=== PATIENT | male | born 1970 | race Two or more races ===

== ENCOUNTER 2020-08-17 13:55 | Outpatient (REF) | payer MEDICARE, SELFPAY ==
--- NOTE | ~2020-08-17 | XR_ITS ---
EXAMINATION: XR FOOT, BILATERAL CLINICAL INFORMATION: Pain. COMPARISON: None TECHNIQUE: 3 views of each foot. FINDINGS: RIGHT FOOT: There is no evidence of acute fracture or dislocation of the right foot. No radiopaque foreign body is seen. Joint spaces are maintained. No destructive bony lesions. No significant soft tissue swelling is appreciated. There are noted to be small Achilles and plantar calcaneal spurs. LEFT FOOT: 3 views of the left foot do not demonstrate any evidence of acute fracture or dislocation. No radiopaque foreign bodies. Joint spaces are maintained. No erosive changes. No significant calcaneal spur appreciated. XR/XR foot LT min 3V IMPRESSION: No evidence of acute fracture or dislocation of either right or left foot. No changes to suggest erosive or osteoarthritis. Right calcaneal spurs.
--- NOTE | ~2020-08-17 | XR_ITS ---
EXAMINATION: XR FOOT, BILATERAL CLINICAL INFORMATION: Pain. COMPARISON: None TECHNIQUE: 3 views of each foot. FINDINGS: RIGHT FOOT: There is no evidence of acute fracture or dislocation of the right foot. No radiopaque foreign body is seen. Joint spaces are maintained. No destructive bony lesions. No significant soft tissue swelling is appreciated. There are noted to be small Achilles and plantar calcaneal spurs. LEFT FOOT: 3 views of the left foot do not demonstrate any evidence of acute fracture or dislocation. No radiopaque foreign bodies. Joint spaces are maintained. No erosive changes. No significant calcaneal spur appreciated. XR/XR foot RT min 3V IMPRESSION: No evidence of acute fracture or dislocation of either right or left foot. No changes to suggest erosive or osteoarthritis. Right calcaneal spurs.
[2020-08-17 16:40] LABS: MANUAL DIFF FLAG NO
[2020-08-17 16:44] LABS: Basophils Percent Auto 0.4 % (0-2); Eosinophils Absolute Auto 0.2 X10*3/uL (0.0-0.4); Eosinophils Percent Auto 3.9 % (0-4); Hematocrit 46.2 % (42-52); Hemoglobin 15.1 g/dl (14.0-18.0); Imm Gran Abs Auto 0.01 X10*3/uL (0.00-0.03); Imm Gran Pct Auto 0.2 % (0.0-0.4); Lymphocytes Absolute Auto 2.3 X10*3/uL (1.2-4.9); Lymphocytes Percent Auto 43.1 % (20-40); Mean Corpuscular HGB Conc 32.7 g/dl (31.0-36.0); Mean Corpuscular Hemoglobin 29.8 pg (27.0-33.0); Mean Corpuscular Volume 91.1 fL (80-98); Mean Platelet Volume 10.5 fL (9.4-12.4); Monocytes Absolute Auto 0.4 X10*3/uL (0.1-1.2); Neutrophils Absolute Auto 2.4 X10*3/uL (2.0-8.3); Neutrophils Percent Auto 44.4 % (45-73); Platelet Count 290 X10*3/uL (160-400); Red Blood Count 5.07 X10*6/uL (4.60-5.80); Red Cell Distribution Width 12.8 % (11.0-16.0); White Blood Count 5.4 X10*3/uL (4.8-10.8)
[2020-08-17 17:52] LABS: Alanine Aminotransferase 19 U/L (0-40); Albumin Level 4.4 g/dL (3.5-5.0); Alkaline Phosphatase 65 U/L (39-117); Anion Gap 13 (12-20); Aspartate Amino Transferase 16 U/L (5-37); Bilirubin Total 0.6 mg/dL (0.0-1.0); Blood Urea Nitrogen 16 mg/dL (9-16); C Reactive Protein 0.37 mg/dL (< or = 0.50); Carbon Dioxide 25 mmol/L (22-29); Chloride 108 mmol/L (96-108); Cholesterol 226 mg/dL; Estimated Glomerular Filt Rate > 60; Glucose Fasting 88 mg/dL (60-99); HDL Cholesterol 45 mg/dL; LDL Cholesterol Calculated 161 mg/dl; Potassium 4.3 mmol/L (3.3-5.1); Sodium 142 mmol/L (135-145); Triglycerides 103 mg/dL
[2020-08-17 17:56] LABS: Erythrocyte Sedimentation Rate 5 MM/HR (0-15)
[2020-08-17 17:59] LABS: TSH reflex Free T4 1.07 uIU/mL (0.32-4.0)
[2020-08-17 18:08] LABS: Rheumatoid Factor < 15.0 IU/mL (<15.0)
[2020-08-17 18:35] LABS: Folate 15.6 ng/mL (> or = 4.0); Vitamin B12 527 pg/mL (200-900)
[2020-08-18 10:57] LABS: Lyme Abs Screen <0.90 index
[2020-08-19 12:46] LABS: Cyclic Citrullinated Peptide <16 UNITS
== END 2020-08-17 13:56 | disposition home or self-care (01) ==
LOC: HO.HMGCX 13:55
PROVIDERS: PCP Nurse Practitioner Family; Visit Provider Nurse Practitioner Family
DX: Z12.5 Encounter for screening for malignant neoplasm of prostate (principal); M79.671 Pain in right foot; M79.672 Pain in left foot; G60.8 Other hereditary and idiopathic neuropathies
CPT/HCPCS: 36415; 73630; 80053; 80061; 82550; 82607; 82746; 84153; 84443; 85025; 85652; 86140; 86200; 86431; 86617; 86618

== ENCOUNTER → 2020-09-13 15:55 | Outpatient (BNVA) | payer MEDICARE, SELFPAY | PROVIDERS: PCP Nurse Practitioner Family; Visit Provider Anesthesiology | DX: M47.816 Spondylosis without myelopathy or radiculopathy, lumbar region (principal); M17.11 Unilateral primary osteoarthritis, right knee; M70.41 Prepatellar bursitis, right knee; Z79.899 Other long term (current) drug therapy | CPT/HCPCS: 99202 ==

== ENCOUNTER → 2020-10-01 11:14 | Outpatient (BNVA) | payer MEDICARE, SELFPAY | PROVIDERS: PCP Nurse Practitioner Family; Referring Provider Nurse Practitioner Family; Visit Provider Nurse Practitioner | DX: Z01.818 Encounter for other preprocedural examination (principal); E78.00 Pure hypercholesterolemia, unspecified; E78.5 Hyperlipidemia, unspecified; M17.11 Unilateral primary osteoarthritis, right knee; M70.41 Prepatellar bursitis, right knee; M47.816 Spondylosis without myelopathy or radiculopathy, lumbar region; F32.9 Major depressive disorder, single episode, unspecified; Z12.11 Encounter for screening for malignant neoplasm of colon | CPT/HCPCS: 99202 ==

== ENCOUNTER 2021-02-10 13:46 | Outpatient (REF) | payer MEDICARE, SELFPAY ==
--- NOTE | ~2021-02-10 | XR_ITS ---
EXAMINATION: XR KNEE, RIGHT CLINICAL INFORMATION: M70.41 - Prepatellar bursitis, right knee COMPARISON: Radiographs right knee 12/17/2018 TECHNIQUE: Four views of the right knee. FINDINGS: There is no fracture, dislocation, or suprapatellar effusion. Hoffa's fat pad appears normal and the deep infrapatellar bursa is preserved. There is a corticated ossicle at superior apex fibular head similar to prior exam 2019. There is no interval joint narrowing or subchondral sclerosis or erosive changes. No visible chondrocalcinosis. XR/XR knee RT 4V IMPRESSION: No acute bony abnormality. No effusion. Deep infrapatellar recess is preserved.
--- NOTE | ~2021-02-10 | XR_ITS ---
EXAMINATION: XR LUMBOSACRAL SPINE CLINICAL INFORMATION: M47.816 - Spondylosis without myelopathy or radiculopathy COMPARISON: Lumbar radiographs 12/17/2018 TECHNIQUE: Three views of the lumbosacral spine. FINDINGS: There are 5 nonrib-bearing lumbar vertebrae of normal height and normal lumbar lordosis. There is no interval vertebral compression or spondylolisthesis. The AP view suggests a faint hairline lucency involving left L5 transverse process which could represent an ununited fracture. Clinically correlate. Otherwise, there is no fracture demonstrated. There are degenerative disc changes at L1-L2 and L2-L3 again noted with mild endplate sclerosis and vertebral spurring. Old limbus vertebrae is again seen at anterior superior aspect L4. The SI joints and visualized sacrum are unremarkable. XR/XR lumbar spine 2-3V IMPRESSION: 1. Questionable hairline fracture left transverse process L5. Clinically correlate. 2. No vertebral compression, spondylolisthesis, destructive process. 3. Degenerative disc changes L1-L2 and L2-L3. 4. 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
== END 2021-02-10 13:47 | disposition home or self-care (01) ==
LOC: HO.HMGCX 13:46
PROVIDERS: PCP Nurse Practitioner Family; Visit Provider Anesthesiology
DX: M47.816 Spondylosis without myelopathy or radiculopathy, lumbar region (principal); M70.41 Prepatellar bursitis, right knee; M17.11 Unilateral primary osteoarthritis, right knee
CPT/HCPCS: 72100; 73564

== ENCOUNTER 2021-03-21 15:00 | Outpatient (RCR) | payer MEDICARE, SELFPAY ==
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
--- NOTE | 2021-04-20 07:52 | MHC.PT.DC ---
[facility] [place] Office [place] Office [place] Office [address] Magalys Ching [address] [phone] F: [phone] F: [phone] F: [phone] F: [phone] Physical Therapy Discharge Report Diagnosis: SPONDYLOSIS WITHOUT MYELOPATHY OR RADICULOPATHY Date of Surgery: NA Date of Evaluation: 02/28/21 Date of Discharge: 04/20/21 Treatments to Date: 6 Cancellations to Date: No Shows to Date: Discharge Status: Patient Elected to Stop Recommend MD Follow-up Discharge Summary: Pt LAST SEEN ON 03/21/21. PER ASSESSMENT FROM THAT DATE:' Pt CONTINUES WITH BACK PAIN. TO SEE MD Apr. AT END OF SESSION Pt REQUESTS AWAIT FURTHER PT UNTIL AFTER MD APPT (BUT WANTED PT TO WRITE PT RECOMMENDATION TO WAIT)..ED THAT IF HE WANTED TO BE ON HOLD UNTIL AFTER MD APPT THAT IS OK, BUT IT IS HIS DECISION PER PLAN FROM 03/21/21 :'Pt TO CALL AFTER PCP APPT IN APR (15). ?BENFIT FROM REFERRAL TO PAIN MANAGEMENT (PER XRAY ?HEALING HAIRLINE FX L TRANSVERSE PROCESS L5)' OF TODAY (04/20/21) Pt HAS NOT CALLED TO RESCHEDULE. WILL DC PT AT THIS TIME. [ End ] Electronically signed by: OREN DA SILVA PT Please sign and return to therapist. Thank you for your referral.
== END 2021-04-20 07:54 | disposition home or self-care (01) ==
LOC: HO.PT 15:00
PROVIDERS: PCP Nurse Practitioner Family; Visit Provider Nurse Practitioner Family
DX: M47.816 Spondylosis without myelopathy or radiculopathy, lumbar region (principal)
CPT/HCPCS: 97014; 97110; 97140; 97162; 97530; 97535

== ENCOUNTER 2021-07-11 14:07 | Outpatient (REF) | payer OTHER, SELFPAY ==
[2021-07-11 16:29] LABS: Alanine Aminotransferase 38 U/L (0-40); Albumin Level 4.5 g/dL (3.5-5.0); Alkaline Phosphatase 68 U/L (39-117); Anion Gap 11 (12-20); Aspartate Amino Transferase 21 U/L (5-37); Bilirubin Total 0.4 mg/dL (0.0-1.0); Blood Urea Nitrogen 13 mg/dL (9-16); Calcium 9.7 mg/dL (8.4-10.2); Carbon Dioxide 28 mmol/L (22-29); Chloride 106 mmol/L (96-108); Cholesterol 237 mg/dL; Estimated Glomerular Filt Rate > 60; Glucose Fasting 94 mg/dL (60-99); HDL Cholesterol 38 mg/dL; LDL Cholesterol Calculated 177 mg/dl; Potassium 4.6 mmol/L (3.3-5.1); Sodium 140 mmol/L (135-145); Total Protein 7.2 g/dL (6.5-8.0); Triglycerides 112 mg/dL
[2021-07-11 16:49] LABS: TSH reflex Free T4 1.21 uIU/mL (0.32-4.0)
== END 2021-07-11 14:08 | disposition home or self-care (01) ==
LOC: HO.LAB 14:07
PROVIDERS: Absent Provider Nurse Practitioner Family; PCP Nurse Practitioner Family; Visit Provider Surgery
DX: K62.89 Other specified diseases of anus and rectum (principal); E78.5 Hyperlipidemia, unspecified; Z79.899 Other long term (current) drug therapy; F17.210 Nicotine dependence, cigarettes, uncomplicated
CPT/HCPCS: 36415; 46600; 80053; 80061; 84443; 99202

== ENCOUNTER 2021-09-07 12:23 | Outpatient (REF) | payer OTHER, SELFPAY ==
[2021-09-07 14:21] LABS: Cholesterol 243 mg/dL; HDL Cholesterol 36 mg/dL; LDL Cholesterol Calculated 178 mg/dl; Triglycerides 147 mg/dL
[2021-09-07 16:41] LABS: Appearance Urine CLEAR; Color Urine YELLOW; Glucose Urine UA NEG (NEG); Leukocyte Esterase Urine NEG (NEG); Nitrite Urine NEG (NEG); UACC Culture Trigger NO; Urine Blood TRACE (NEG); Urine Ketones NEG (NEG); Urine Protein NEG (NEG-TRACE)
[2021-09-07 17:22] LABS: Mucus Urine 1+ /LPF; RBC Urine 0-2 /HPF (0); Squamous Epithelial Cell Urine TRACE /LPF; WBC Urine 0-2 /HPF (0-4)
== END 2021-09-07 12:24 | disposition home or self-care (01) ==
LOC: HO.HMGCLDS 12:23
PROVIDERS: PCP Nurse Practitioner Family; Visit Provider Nurse Practitioner Family
DX: E78.5 Hyperlipidemia, unspecified (principal)
CPT/HCPCS: 36415; 80061; 81001

== ENCOUNTER 2021-09-15 07:13 | Outpatient (REF) | payer OTHER, SELFPAY ==
--- NOTE | ~2021-09-15 | XR_ITS ---
EXAMINATION: XR SHOULDER, LEFT CLINICAL INFORMATION: Shoulder pain COMPARISON: None TECHNIQUE: Left shoulder is imaged in 3 views. FINDINGS: Suspect nondisplaced fracture at base greater tuberosity on the external rotation view. Fracture line is not clearly visible on the other 2 projections. There is no dislocation or destructive process. The glenohumeral joint appears normal. The acromioclavicular alignment is normal. There is calcific tendinosis in the region of the distal superior rotator cuff. XR/XR shoulder LT min 2V IMPRESSION: -Suspect nondisplaced fracture at base greater tuberosity on one view. -Calcific tendinosis distal superior rotator cuff.
[2021-09-15 14:58] LABS: Appearance Urine CLEAR; Color Urine YELLOW; Glucose Urine UA NEG (NEG); Leukocyte Esterase Urine NEG (NEG); Nitrite Urine NEG (NEG); PH 5.5 (5.0-8.0); Specific Gravity - Urine >= 1.030 (1.005-1.025); Urine Blood NEG (NEG); Urine Ketones NEG (NEG); Urine Protein NEG (NEG-TRACE)
== END 2021-09-15 07:14 | disposition home or self-care (01) ==
LOC: HO.HOSX 07:13
PROVIDERS: Nurse Practitioner Family; Visit Provider Physician Assistant
DX: S42.252A Displaced fracture of greater tuberosity of left humerus, initial encounter for closed fracture (principal); E78.5 Hyperlipidemia, unspecified
CPT/HCPCS: 73030; 81003; 99202

== ENCOUNTER 2021-09-21 15:51 | Emergency (ER) | payer OTHER, SELFPAY ==
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
[2021-09-21 15:56] VITALS: BP 130/86; PULSE 57; RESP 18; TEMP 36.6; O2SAT 97; BMI 35.1
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
--- NOTE | 2021-09-21 16:12 | PC.NURSE ---
Pt refusing labs, ekg and only wants CT scan.
--- NOTE | 2021-09-21 16:14 | PC.NURSE ---
Patient refused EKG. ANGELLA cancino.
== END 2021-09-21 18:49 | disposition home or self-care (01) ==
PROVIDERS: Emergency Provider Emergency Medicine; PCP Nurse Practitioner Family
DX: R42 Dizziness and giddiness (principal); R51.9 Headache, unspecified; F17.210 Nicotine dependence, cigarettes, uncomplicated; Z71.6 Tobacco abuse counseling
CPT/HCPCS: 70450; 99284

== ENCOUNTER 2021-10-20 08:53 | Outpatient (REF) | payer OTHER, SELFPAY | END 2021-10-20 08:54 | disposition home or self-care (01) | LOC: HO.HOSX 08:53 | PROVIDERS: Visit Provider Physician Assistant | DX: Z13.89 Encounter for screening for other disorder (principal) ==

== ENCOUNTER 2021-10-27 10:56 | Outpatient (AMB) | payer OTHER, SELFPAY ==
--- NOTE | 2021-10-27 11:21 | A.OFFVIS_ITS ---
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 He presents for the following urologic conditions - left groin pain Left groin pain On exam some evidence of inguinal disruption Reassurance provided Exercises [facility] Medical History (Updated 01/08/23 @ 17:03 by ELA Osborn) Anal pain Prepatellar bursitis, right knee Osteoarthritis of right knee Spondylosis of lumbar spine Dyslipidemia Severe depression Surgical History H/O hemorrhoidectomy Family History Father No problems noted. Mother No problems noted. Social History Housing: House Alcohol intake: former Patient Tobacco Use Status: Current everyday Tobacco user Cigarette Packs Per Day: 1 Cigarettes Per Day: 20 Years Smoked: 16 years old e-Cigarette/Vaping Use: Never Used Second Hand Smoke Exposure: Yes service: Yes ([employer] training ) Current occupational status: unemployed Cognitive needs: No Hearing needs: No Vision needs: No Review of Systems Const Denies chills and Denies fever(s) Card Reports no additional complaints and Denies syncope Resp Denies cough GI Denies abdominal pain and Denies heartburn Reports as per HPI and Denies change in libido Neuro Denies syncope Psych Denies change in libido Endo Denies change in libido Physical Exam Const General: cooperative, healthy appearing, comfortable and no acute distress Orientation/consciousness: patient oriented x3 HEENT Face and sinus: Yes normal facial exam Mouth: moist mucous membranes Neck Neck: Yes normal visual inspection, Yes full ROM and Yes trachea midline Chest Chest palpation & inspection: normal inspection of the chest Resp Effort & Inspection: normal respiratory effort, able to speak in complete sentences and no respiratory distress GI Inspection: Yes normal to inspection Back/Spine/Pelvis Cervical Spine: normal cervical lordosis Thoracic/Lumbar Spine: thoracic and lumbar spine normal to inspection Skin General skin exam: no rashes or lesions noted Neuro General: patient oriented x3, gait normal, tone normal and moves all extremities Extrem General: Yes normal to inspection and Yes capillary refill normal Assessment & Plan Assessment & Plan (1) Scrotal lesion: Code(s): N50.9 - Disorder of male genital organs, unspecified Plan P.r.n. follow-up Patient Instructions: Imaging studies, laboratory and physical exam results were discussed and reviewed in detail. No major barriers to patient understanding were identified. An opportunity to ask questions regarding the treatment plan was provided. All questions were answered. The patient expressed understanding and agreement with the above treatment plan. The patient is aware they should contact our office by phone for worsening of their current condition or the appearance of new urologic symptoms. Compliance is encouraged with any medications and followup testing that is ordered. It is a privilege to participate in the urologic care of your patient. If you have any questions or concerns regarding treatment for the above conditions, or other urologic issues, please do not hesitate to contact me. The office telephone contact is [phone]. This note is constructed using voice recognition software. While every effort has been made to ensure accuracy business office associate errors may have been included. Yours sincerely, Dr Lars Simmons MD, [facility] - Urology Providers of Expert, Compassionate Care for the Genitourinary System Coding Level of Care Code New Pt Level 3 (23842) Diagnoses Scrotal lesion N50.9
== END 2021-10-27 11:35 | disposition home or self-care (01) ==
LOC: HO.HUSH 10:56
PROVIDERS: PCP Nurse Practitioner Family; Visit Provider Urology
DX: N50.9 Disorder of male genital organs, unspecified (principal)
CPT/HCPCS: 99499

== ENCOUNTER 2021-10-27 12:37 | Outpatient (REF) | payer OTHER, SELFPAY ==
--- NOTE | ~2021-10-27 | XR_ITS ---
EXAMINATION: LEFT HUMERUS AND LEFT SHOULDER CLINICAL INFORMATION: Left greater tuberosity fracture COMPARISON: Left humerus 09/15/2021 TECHNIQUE: 2 views FINDINGS: Again visualized is a minimally nondisplaced left greater tuberosity fracture no additional fracture seen there is no dislocation. There is calcification along the rotator cuff insertion site. No additional fracture seen. AC joint is intact. Rest the soft tissues are normal. XR/XR shoulder LT min 2V IMPRESSION: No major change in the nondisplaced left greater tuberosity fracture. Likely calcific tendinosis insertion of left rotator cuff .
--- NOTE | ~2021-10-27 | XR_ITS ---
EXAMINATION: LEFT HUMERUS AND LEFT SHOULDER CLINICAL INFORMATION: Left greater tuberosity fracture COMPARISON: Left humerus 09/15/2021 TECHNIQUE: 2 views FINDINGS: Again visualized is a minimally nondisplaced left greater tuberosity fracture no additional fracture seen there is no dislocation. There is calcification along the rotator cuff insertion site. No additional fracture seen. AC joint is intact. Rest the soft tissues are normal. XR/XR humerus LT IMPRESSION: No major change in the nondisplaced left greater tuberosity fracture. Likely calcific tendinosis insertion of left rotator cuff .
== END 2021-10-27 12:38 | disposition home or self-care (01) ==
LOC: HO.HOSX 12:37
PROVIDERS: Visit Provider Physician Assistant
DX: S42.252D Displaced fracture of greater tuberosity of left humerus, subsequent encounter for fracture with routine healing (principal); M25.512 Pain in left shoulder
CPT/HCPCS: 73030; 73060; 99212

== ENCOUNTER → 2021-12-09 13:08 | Outpatient (BNVA) | payer OTHER, SELFPAY | PROVIDERS: PCP Nurse Practitioner Family; Visit Provider Physician Assistant | DX: S42.252D Displaced fracture of greater tuberosity of left humerus, subsequent encounter for fracture with routine healing (principal) | CPT/HCPCS: 99212 ==

== ENCOUNTER 2022-02-09 11:57 | Outpatient (REF) | payer OTHER, SELFPAY ==
[2022-02-09 13:59] LABS: MANUAL DIFF FLAG NO
[2022-02-09 14:02] LABS: Basophils Percent Auto 0.4 % (0-2); Eosinophils Absolute Auto 0.3 X10*3/uL (0.0-0.4); Eosinophils Percent Auto 5.4 % (0-4); Hematocrit 46.4 % (42.0-52.0); Hemoglobin 15.8 g/dl (14.0-18.0); Imm Gran Abs Auto 0.01 X10*3/uL (0.00-0.03); Imm Gran Pct Auto 0.2 % (0.0-0.4); Lymphocytes Absolute Auto 2.5 X10*3/uL (1.2-4.9); Lymphocytes Percent Auto 49.6 % (20-40); Mean Corpuscular HGB Conc 34.1 g/dl (31.0-36.0); Mean Corpuscular Hemoglobin 30.6 pg (27.0-33.0); Mean Corpuscular Volume 89.7 fL (80.0-98.0); Mean Platelet Volume 11.1 fL (9.4-12.4); Monocytes Absolute Auto 0.4 X10*3/uL (0.1-1.2); Monocytes Percent Auto 7.5 % (2-11); Neutrophils Absolute Auto 1.8 x10*3/uL (2.0-8.3); Neutrophils Percent Auto 36.9 % (45-73); Platelet Count 280 X10*3/uL (160-400); Red Blood Count 5.17 X10*6/uL (4.60-5.80); Red Cell Distribution Width 12.8 % (11.0-16.0)
[2022-02-09 14:06] LABS: Appearance Urine Clear; Color Urine Yellow; Glucose Urine UA Negative (Negative); Leukocyte Esterase Urine Negative (Negative); Nitrite Urine Negative (Negative); Urine Blood Negative (Negative); Urine Ketones Negative (Negative); Urine Protein Negative (Neg-Trace)
[2022-02-09 14:20] LABS: Alanine Aminotransferase 59 U/L (0-40); Albumin Level 4.3 g/dL (3.5-5.0); Alkaline Phosphatase 63 U/L (39-117); Anion Gap 15 (12-20); Aspartate Amino Transferase 32 U/L (5-37); Bilirubin Total 0.6 mg/dL (0.0-1.0); Blood Urea Nitrogen 16 mg/dL (9-16); Calcium 9.2 mg/dL (8.4-10.2); Carbon Dioxide 21 mmol/L (22-29); Chloride 109 mmol/L (96-108); Cholesterol 250 mg/dL; Estimated Glomerular Filt Rate > 60; Glucose Fasting 98 mg/dL (60-99); HDL Cholesterol 38 mg/dL; LDL Cholesterol Calculated 198 mg/dl; Potassium 4.3 mmol/L (3.3-5.1); Sodium 141 mmol/L (135-145); Triglycerides 73 mg/dL
[2022-02-09 14:43] LABS: Prostate Specific Antigen Scr 0.45 ng/mL (<0.05-4.0)
== END 2022-02-09 11:58 | disposition home or self-care (01) ==
LOC: HO.HMGCLDS 11:57
PROVIDERS: PCP Nurse Practitioner Family; Visit Provider Nurse Practitioner Family
DX: E78.5 Hyperlipidemia, unspecified (principal); Z12.5 Encounter for screening for malignant neoplasm of prostate
CPT/HCPCS: 36415; 80053; 80061; 81003; 84153; 84443; 85025

== ENCOUNTER 2022-12-13 13:47 | Outpatient (AMB) | payer OTHER, SELFPAY ==
[2022-12-13 13:58] VITALS: BP 124/88; PULSE 61; O2SAT 97; BMI 34.4
--- NOTE | 2022-12-13 13:58 | A.OFFPC_ITS ---
Vital Signs 12/13/22 13:58 Height 5 ft 6 in Weight 213 lb BMI 34.4 BP 124/88 Blood Pressure Location Rt brachial Position Sitting Pulse 61 Pulse Source Pulse Oximeter Pulse Oximetry (%) 97 Oxygen Delivery Method Room Air Intake Visit Reasons: 3m follow up Allergies trazodone Adverse Reaction (Unknown, Verified 12/13/22 14:01) Nauseas, fatigued Tobacco use date assessed: 12/13/22 Dental Screening Dental Screen Date: 12/13/22 Did you have a dental visit in the last 12 months?: No Did you have a dental problem in the last 6 months where you did not have access to dental care?: No Was dental information given to patient?: No HPI 3m follow up HPI Details Dyslipidemia: Pt has not been taking medication for this. Will order labs. Denies chest pain, shortness of breath, and dizziness. Pt reports ongoing left shoulder pain (see NEOs notes). He reports limited ROM. Pt has seen ortho in the past. He is requesting a referral to PT to improve ROM, will refer. [facility] Medical History (Updated 12/13/22 @ 14:36 by SHARRON Osborn-JESSICA) Anal pain Prepatellar bursitis, right knee Osteoarthritis of right knee Spondylosis of lumbar spine Dyslipidemia Severe depression Surgical History H/O hemorrhoidectomy Family History Father No problems noted. Mother No problems noted. Social History Housing: House Alcohol intake: former Patient Tobacco Use Status: Current everyday Tobacco user Cigarette Packs Per Day: 1 Cigarettes Per Day: 20 Years Smoked: 16 years old e-Cigarette/Vaping Use: Never Used Second Hand Smoke Exposure: Yes service: Yes ([employer] training ) Current occupational status: unemployed Cognitive needs: No Hearing needs: No Vision needs: No Questionnaire Thrive Questionnaire Date Thrive assessed: 06/01/21 Review of Systems Const Reports as per HPI Physical exam (Primary Care) Vital Signs: Last Vital Signs Pulse 61 12/13/22 13:58 BP 124/88 12/13/22 13:58 Pulse Ox 97 12/13/22 13:58 Oxygen Delivery Method Room Air 12/13/22 13:58 BMI result Body Mass Index 34.4 Tobacco/Smoking Status: Tobacco use Status Tobacco use date assessed 12/13/22 12/13/22 14:04 Patient Tobacco Use Status Current everyday Tobacco 12/13/22 14:04 e-Cigarette/Vaping Use Never Used 12/13/22 14:04 Thrive Assessment: Date of Thrive Assessment Date Thrive assessed 06/01/21 12/13/22 14:04 Const General: cooperative Nutritional Appearance: obese Orientation/consciousness: patient oriented x3 Resp Effort & Inspection: normal respiratory effort Auscultation: diminished lung sounds Cardio Rate: regular rate Rhythm: regular rhythm Heart sounds: S1 normal heart sound present and S2 normal heart sound present Neuro General: patient oriented x3 Extrem Other: limited ROM to left shoulder Psych Appearance: grossly normal Mental Status: mental status grossly normal Speech and movement: Normal speech and movement present Affect: normal affect Attitude: cooperative Thought process: Normal thought process present Thought content: Normal thought content present Insight: Good insight present (Psych) Judgement: Good judgement present (Psych) Assessment and Plan Assessment & Plan (1) Dyslipidemia: Code(s): E78.5 - Hyperlipidemia, unspecified Plan: Labs ordered (2) Left shoulder pain: Code(s): M25.512 - Pain in left shoulder Plan: PT Plan The patient agreed to the use of a medical information specialist for this encounter. Scribed for SHARRON Dasilva- by Veronica Means medical information specialist, on 12/13/2022 at 14:30 EST. Orders: Orders TSH reflex Free T4 Today E78.5 - Hyperlipidemia, unspecified UA CC w/rflx Micro + Cult Today E78.5 - Hyperlipidemia, unspecified Complete Blood Count Auto Diff Today E78.5 - Hyperlipidemia, unspecified Comprehensive [place]. Panel Fast Today E78.5 - Hyperlipidemia, unspecified Lipid Panel Today E78.5 - Hyperlipidemia, unspecified PT Evaluation and Treatment Today M25.512 - Pain in left shoulder Referrals Cologuard Test Z12.11 - Encounter for screening for malignant neoplasm of colon, Z12.12 - Encounter for screening for malignant neoplasm of rectum Coding Level of Care Code Est Pt Level 3 (31680) Diagnoses Dyslipidemia E78.5 Left shoulder pain M25.512
== END 2022-12-13 14:45 | disposition home or self-care (01) ==
PROVIDERS: PCP Nurse Practitioner Family; Visit Provider Nurse Practitioner Family
DX: E78.5 Hyperlipidemia, unspecified (principal); M25.512 Pain in left shoulder
CPT/HCPCS: 99213

== ENCOUNTER 2023-01-08 14:34 | Outpatient (REF) | payer OTHER, SELFPAY | END 2023-01-08 14:35 | disposition home or self-care (01) | LOC: HO.HMGCLDS 14:34 | PROVIDERS: PCP Nurse Practitioner Family; Visit Provider Nurse Practitioner Family | DX: E78.5 Hyperlipidemia, unspecified (principal) | CPT/HCPCS: 36415; 80053; 80061; 81001; 84443; 85025 ==

== ENCOUNTER 2023-01-18 12:22 | Outpatient (REF) | payer OTHER, SELFPAY ==
[2023-01-18 13:17] LABS: Urine Cytology See Pathology rpt
[2023-01-18 13:23] LABS: Appearance Urine Clear; Color Urine Yellow; Glucose Urine UA Negative (Negative); Leukocyte Esterase Urine Negative (Negative); Nitrite Urine Negative (Negative); Specific Gravity - Urine <= 1.005 (1.005-1.025); Urine Blood Negative (Negative); Urine Ketones Negative (Negative); Urine Protein Negative (Neg-Trace)
== END 2023-01-18 12:23 | disposition home or self-care (01) ==
LOC: HO.HMGCLDS 12:22
PROVIDERS: PCP Nurse Practitioner Family; Visit Provider Nurse Practitioner Family
DX: E78.5 Hyperlipidemia, unspecified (principal); R31.29 Other microscopic hematuria
CPT/HCPCS: 81003; 87086; 88112

== ENCOUNTER 2023-05-09 15:49 | Outpatient (REF) | payer OTHER, SELFPAY | END 2023-05-09 15:50 | disposition home or self-care (01) | LOC: HO.CT 15:49 | PROVIDERS: PCP Nurse Practitioner Family; Visit Provider Nurse Practitioner Family | DX: Z13.89 Encounter for screening for other disorder (principal) ==

== ENCOUNTER 2023-07-02 13:15 | Outpatient (AMB) | payer OTHER, SELFPAY ==
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
[2023-07-02 13:22] VITALS: BP 124/90; PULSE 68; O2SAT 97; BMI 35.0
[2023-07-02 13:56] VITALS: BP 120/80
== END 2023-07-02 14:16 | disposition home or self-care (01) ==
PROVIDERS: PCP Nurse Practitioner Family; Visit Provider Nurse Practitioner Family
DX: Z00.00 Encounter for general adult medical examination without abnormal findings (principal); Z12.5 Encounter for screening for malignant neoplasm of prostate; F17.200 Nicotine dependence, unspecified, uncomplicated
CPT/HCPCS: 99396

== ENCOUNTER 2023-07-02 14:19 | Outpatient (REF) | payer OTHER, SELFPAY ==
[2023-07-02 16:14] LABS: MANUAL DIFF FLAG NO
[2023-07-02 16:23] LABS: Basophils Percent Auto 0.7 % (0-2); Eosinophils Absolute Auto 0.3 X10*3/uL (0.0-0.4); Eosinophils Percent Auto 6.7 % (0-4); Hematocrit 47.3 % (42.0-52.0); Hemoglobin 15.9 g/dl (14.0-18.0); Imm Gran Abs Auto 0.01 X10*3/uL (0.00-0.03); Imm Gran Pct Auto 0.2 % (0.0-0.4); Lymphocytes Absolute Auto 1.8 X10*3/uL (1.2-4.9); Lymphocytes Percent Auto 43.8 % (20-40); Mean Corpuscular HGB Conc 33.6 g/dl (31.0-36.0); Mean Corpuscular Hemoglobin 30.5 pg (27.0-33.0); Mean Corpuscular Volume 90.8 fL (80.0-98.0); Mean Platelet Volume 10.5 fL (9.4-12.4); Monocytes Absolute Auto 0.4 X10*3/uL (0.1-1.2); Monocytes Percent Auto 8.9 % (2-11); Neutrophils Absolute Auto 1.7 x10*3/uL (2.0-8.3); Neutrophils Percent Auto 39.7 % (45-73); Platelet Count 283 X10*3/uL (160-400); Red Blood Count 5.21 X10*6/uL (4.60-5.80); Red Cell Distribution Width 12.7 % (11.0-16.0); White Blood Count 4.2 X10*3/uL (4.8-10.8)
[2023-07-02 16:43] LABS: Alanine Aminotransferase 25 U/L (0-40); Albumin Level 4.2 g/dL (3.5-5.0); Alkaline Phosphatase 64 U/L (39-117); Anion Gap 8 (12-20); Aspartate Amino Transferase 20 U/L (5-37); Bilirubin Total 0.4 mg/dL (0.0-1.0); Blood Urea Nitrogen 11 mg/dL (9-16); Calcium 9.4 mg/dL (8.4-10.2); Carbon Dioxide 30 mmol/L (22-29); Chloride 107 mmol/L (96-108); Cholesterol 236 mg/dL (<200); Estimated Glomerular Filt Rate > 60; Glucose Fasting 97 mg/dL (60-99); HDL Cholesterol 40 mg/dL (>40); LDL Cholesterol Calculated 172 mg/dL (<100); Potassium 4.3 mmol/L (3.3-5.1); Sodium 141 mmol/L (135-145); Total Protein 7.4 g/dL (6.5-8.0); Triglycerides 123 mg/dL (<150)
[2023-07-02 16:57] LABS: Prostate Specific Antigen Scr 0.52 ng/mL (<0.05-4.0)
[2023-07-02 16:59] LABS: Appearance Urine Clear; Color Urine Yellow; Glucose Urine UA Negative (Negative); Leukocyte Esterase Urine Negative (Negative); Nitrite Urine Negative (Negative); Urine Blood Negative (Negative); Urine Ketones Negative (Negative); Urine Protein Negative (Neg-Trace)
== END 2023-07-02 14:20 | disposition home or self-care (01) ==
LOC: HO.HMGCLDS 14:19
PROVIDERS: PCP Nurse Practitioner Family; Visit Provider Nurse Practitioner Family
DX: Z00.00 Encounter for general adult medical examination without abnormal findings (principal); D72.829 Elevated white blood cell count, unspecified; Z12.5 Encounter for screening for malignant neoplasm of prostate
CPT/HCPCS: 36415; 80053; 80061; 81003; 84153; 84443; 85025

== ENCOUNTER 2023-09-04 13:23 | Outpatient (REF) | payer OTHER, SELFPAY ==
[2023-09-04 16:27] LABS: Alanine Aminotransferase 18 U/L (0-40); Albumin Level 4.2 g/dL (3.5-5.0); Alkaline Phosphatase 63 U/L (39-117); Anion Gap 11 (12-20); Aspartate Amino Transferase 16 U/L (5-37); Bilirubin Total 0.6 mg/dL (0.0-1.0); Blood Urea Nitrogen 16 mg/dL (9-16); Calcium 9.2 mg/dL (8.4-10.2); Carbon Dioxide 26 mmol/L (22-29); Chloride 109 mmol/L (96-108); Cholesterol 227 mg/dL (<200); Estimated Glomerular Filt Rate > 60; Glucose Fasting 92 mg/dL (60-99); HDL Cholesterol 39 mg/dL (>40); LDL Cholesterol Calculated 161 mg/dL (<100); Potassium 3.7 mmol/L (3.3-5.1); Sodium 142 mmol/L (135-145); Total Protein 7.1 g/dL (6.5-8.0); Triglycerides 136 mg/dL (<150)
== END 2023-09-04 13:24 | disposition home or self-care (01) ==
LOC: HO.HMGCLDS 13:23
PROVIDERS: PCP Nurse Practitioner Family; Visit Provider Nurse Practitioner Family
DX: E78.5 Hyperlipidemia, unspecified (principal)
CPT/HCPCS: 36415; 80053; 80061

== ENCOUNTER 2023-11-12 13:46 | Outpatient (AMB) | payer OTHER, SELFPAY ==
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
[2023-11-12 14:04] VITALS: BP 120/82; PULSE 65; O2SAT 97; BMI 34.9
== END 2023-11-12 15:37 | disposition home or self-care (01) ==
PROVIDERS: PCP Nurse Practitioner Family; Visit Provider Nurse Practitioner Family
DX: M54.2 Cervicalgia (principal); F07.81 Postconcussional syndrome
CPT/HCPCS: 99213

== ENCOUNTER 2023-11-27 08:59 | Outpatient (REF) | payer OTHER, SELFPAY ==
--- NOTE | 2023-11-27 09:03 | EMG_ITS ---
Left median and ulnar motor and sensory studies were performed. Left radial and median and lateral antecubital brachial sensory studies were performed, and needle examination was performed. IMPRESSION: This is an unremarkable study with no evidence of median or ulnar neuropathy, plexopathy, or radiculopathy. MD FINN Hassan/MODL / [id number]
== END 2023-11-27 09:00 | disposition home or self-care (01) ==
LOC: HO.NEURO 08:59
PROVIDERS: PCP Nurse Practitioner Family; Visit Provider Nurse Practitioner Family
DX: M54.2 Cervicalgia (principal); R10.12 Left upper quadrant pain
CPT/HCPCS: 95886; 95910

== ENCOUNTER 2023-12-18 16:30 | Outpatient (REF) | payer OTHER, SELFPAY ==
--- NOTE | ~2023-12-18 | MR_ITS ---
EXAMINATION: MR CERVICAL SPINE WITHOUT CONTRAST CLINICAL INFORMATION: Trauma. Post concussion syndrome. Left arm numbness. Bilateral leg numbness. Neck pain. COMPARISON: None available. TECHNIQUE: MRI of the cervical spine was obtained using routine sequences without contrast. FINDINGS: Straightening of the normal cervical lordosis. Mild degenerative stepwise anterolistheses of C2-C6. Moderate degenerative disc disease from C3-C7. Associated mixed Modic type discogenic endplate changes including mild Modic type I discogenic edema from C2-C7. Mild marrow edema within the posterior elements of C2-C4 consistent with degenerative stress reaction. No additional suspicious marrow edema. The vertebral body heights are well-maintained. The spinal cord is normal in appearance. Limited evaluation of the soft tissues of the neck without demonstrated abnormalities. The flow voids of the major cervical vessels are maintained. Normal appearance of the cervicomedullary junction and visualized posterior fossa. SPINAL LEVELS: C2-C3: Mild disc-osteophyte complex. There is moderate bilateral uncovertebral joint arthropathy. There is moderate left worse than right facet joint arthropathy. There is moderate bilateral neural foraminal stenosis. There is no spinal canal stenosis. C3-C4: Moderate disc-osteophyte complex. There is severe right and moderate left uncovertebral joint arthropathy. There is moderate bilateral facet joint arthropathy. There is severe right and moderate left neural foraminal stenosis. There is no overt spinal canal stenosis. C4-C5: Moderate disc-osteophyte complex. There is moderate bilateral uncovertebral joint arthropathy. There is moderate left worse than right facet joint arthropathy. There is severe left and moderate right neural foraminal stenosis. There is no spinal canal stenosis. C5-C6: Moderate disc-osteophyte complex. There is mild bilateral uncovertebral joint arthropathy. There is moderate left worse than right facet joint arthropathy. There is moderate left and mild right neural foraminal stenosis. There is no spinal canal stenosis. C6-C7: Moderate disc-osteophyte complex. There is moderate bilateral uncovertebral joint arthropathy. There is moderate bilateral facet joint arthropathy. There is moderate right and mild left neural foraminal stenosis. There is no spinal canal stenosis. C7-T1: Mild disc-osteophyte complex. There is moderate right and mild left uncovertebral joint arthropathy. There is mild left and no right facet joint arthropathy. There is mild bilateral neural foraminal stenosis. There is no spinal canal stenosis. MR/MR cervical spine wo con IMPRESSION: Moderate multilevel degenerative spondyloarthropathy of the cervical spine as described in detail above. Most notably, there are moderate to severe neural foraminal stenoses from C2-C7. No overt spinal canal stenosis. Electronically signed by: Wilmar Chun DO 01/13/2024 03:04 AM EDT
== END 2023-12-18 16:31 | disposition home or self-care (01) ==
LOC: HO.MRI 16:30
PROVIDERS: PCP Nurse Practitioner Family; Visit Provider Nurse Practitioner Family
DX: F07.81 Postconcussional syndrome (principal); M54.2 Cervicalgia
CPT/HCPCS: 72141

== ENCOUNTER 2024-01-28 10:19 | Outpatient (AMB) | payer OTHER, SELFPAY ==
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
== END 2024-01-28 11:26 | disposition home or self-care (01) ==
PROVIDERS: PCP Nurse Practitioner Family; Referring Provider Nurse Practitioner Family; Visit Provider Physician Assistant
DX: M25.512 Pain in left shoulder (principal); F07.81 Postconcussional syndrome
CPT/HCPCS: 99204

== ENCOUNTER → 2024-01-28 10:19 | Outpatient (BNVA) | payer OTHER, SELFPAY | PROVIDERS: PCP Nurse Practitioner Family; Visit Provider Physician Assistant | DX: M25.512 Pain in left shoulder (principal); F07.81 Postconcussional syndrome | CPT/HCPCS: 99202 ==

== ENCOUNTER 2024-02-20 08:39 | Outpatient (AMB) | payer OTHER, SELFPAY ==
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
[2024-02-20 09:17] VITALS: BP 124/96; PULSE 59; RESP 15; O2SAT 99; BMI 41.8
== END 2024-02-20 09:48 | disposition home or self-care (01) ==
PROVIDERS: PCP Nurse Practitioner Family; Visit Provider Internal Medicine
DX: M25.512 Pain in left shoulder (principal); M54.12 Radiculopathy, cervical region; M54.16 Radiculopathy, lumbar region
CPT/HCPCS: 99204

== ENCOUNTER → 2024-02-20 08:39 | Outpatient (BNVA) | payer OTHER, SELFPAY | PROVIDERS: PCP Nurse Practitioner Family; Visit Provider Internal Medicine | DX: M25.512 Pain in left shoulder (principal); M54.12 Radiculopathy, cervical region; M54.16 Radiculopathy, lumbar region | CPT/HCPCS: 99202 ==

== ENCOUNTER 2024-02-25 16:36 | Outpatient (REF) | payer OTHER, SELFPAY ==
--- NOTE | ~2024-02-25 | MR_ITS ---
EXAMINATION: MR BRAIN WITHOUT CONTRAST CLINICAL INFORMATION: Postconcussion syndrome. COMPARISON: CT head from 09/21/2021. TECHNIQUE: MRI of the brain was obtained using routine sequences without contrast. FINDINGS: No focal restricted diffusion is demonstrated to suggest acute or subacute cerebral ischemia. No evidence of acute or chronic hemorrhagic products on heme-sensitive imaging. Scattered periventricular and deep white matter T2 FLAIR hyperintensities consistent with mild underlying microangiopathy. Proportional prominence of the ventricles and sulcal spaces without evidence of obstructive hydrocephalus. No abnormal mass effect. No midline shift. Normal appearance of the pituitary gland. Normal positioning of the cerebellar tonsils. Normal arterial and venous vascular flow voids are present. Normal, homogeneous marrow signal. Moderate mucosal thickening of the paranasal sinuses. Small volume layering fluid within the left maxillary sinus. No signal abnormalities within the mastoids. MR/MR head/brain wo con IMPRESSION: 1. No acute intracranial abnormalities. 2. Mild underlying microangiopathy and generalized cerebral volume loss. 3. Moderate sinonasal mucosal disease. Small volume layering fluid within the left maxillary sinus suggestive of acute sinusitis. Electronically signed by: Wilmar Chun DO 03/12/2024 07:14 AM ANNALISA
== END 2024-02-25 16:37 | disposition home or self-care (01) ==
LOC: HO.MRI 16:36
PROVIDERS: PCP Nurse Practitioner Family; Visit Provider Physician Assistant
DX: F07.81 Postconcussional syndrome (principal)
CPT/HCPCS: 70551

== ENCOUNTER 2024-03-20 12:56 | Outpatient (AMB) | payer OTHER, SELFPAY ==
[2024-03-20 13:02] VITALS: BP 132/88; PULSE 61; O2SAT 98; BMI 42.2
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
== END 2024-03-20 15:04 | disposition home or self-care (01) ==
PROVIDERS: PCP Nurse Practitioner Family; Visit Provider Nurse Practitioner Family
DX: M25.512 Pain in left shoulder (principal); M54.12 Radiculopathy, cervical region; K08.89 Other specified disorders of teeth and supporting structures; M54.16 Radiculopathy, lumbar region

== ENCOUNTER → 2024-03-20 12:56 | Outpatient (BNVA) | payer OTHER, SELFPAY | PROVIDERS: PCP Nurse Practitioner Family; Visit Provider Nurse Practitioner Family | DX: M25.512 Pain in left shoulder (principal); M54.12 Radiculopathy, cervical region; K08.89 Other specified disorders of teeth and supporting structures; M54.16 Radiculopathy, lumbar region | CPT/HCPCS: 99212 ==

== ENCOUNTER → 2024-03-21 10:51 | Outpatient (BNVA) | payer OTHER, SELFPAY | PROVIDERS: PCP Nurse Practitioner Family; Visit Provider Internal Medicine | DX: M54.16 Radiculopathy, lumbar region (principal); M54.12 Radiculopathy, cervical region; M25.512 Pain in left shoulder; R42 Dizziness and giddiness | CPT/HCPCS: 99212 ==

== ENCOUNTER 2024-03-21 10:53 | Outpatient (AMB) | payer OTHER, SELFPAY ==
[2024-03-21 11:15] VITALS: BP 134/77; PULSE 59; RESP 15; O2SAT 98; BMI 42.0
--- NOTE | 2024-03-21 11:15 | MHC.OFFVIS ---
Vital Signs 03/21/24 11:15 Height 5 ft Weight 215 lb BMI 42.0 BP 134/77 Blood Pressure Location Lt brachial Position Sitting Respiration 15 Pulse 59 Pulse Source Pulse Oximeter Pulse Oximetry (%) 98 Oxygen Delivery Method Room Air Intake Visit Reasons: 1 Month Follow Up/Discuss MRI Results Allergies trazodone Adverse Reaction (Unknown, Verified 03/21/24 11:16) Nauseas, fatigued Medication List - Last Reconciled 03/21/24 by Rachel Oscar LPN amoxicillin-pot clavulanate 875-125 mg 1 tab PO BID 10 days atorvastatin 80 mg (2 x 40 mg) PO BEDTIME 90 days meloxicam 15 mg PO DAILY PRN 30 days oxycodone-acetaminophen 5-325 mg (Percocet) 1 tab PO Q8H PRN 12 days HPI HPI 1 Month Follow Up/Discuss MRI Results: Details: 53-year-old male who presents today to the office for a one month follow up and review of MRI scan. He states feeling passing out and lightheadedness/dizziness. He has followed up with his primary care physician, who again referred him to physical therapy and acupuncture. He received the call to schedule the appointment, but he deferred the date of the appointment and was angry at the production planner scheduler. [facility] Medical History Smoker Anal pain Prepatellar bursitis, right knee Osteoarthritis of right knee Spondylosis of lumbar spine Dyslipidemia Severe depression Surgical History H/O hemorrhoidectomy Family History Father No problems noted. Mother No problems noted. Social History Housing: House Alcohol intake: former Patient Tobacco Use Status: Current everyday Tobacco user Cigarette Packs Per Day: 1 Cigarettes Per Day: 20 Years Smoked: 16 years old e-Cigarette/Vaping Use: Never Used Second Hand Smoke Exposure: Yes service: Yes ([employer] training ) Current occupational status: unemployed Cognitive needs: No Hearing needs: No Vision needs: No Review of Systems Const All systems reviewed & are unremarkable except as noted in HPI and below Physical Exam Vital Signs: Last Vital Signs Pulse 59 03/21/24 11:15 Resp 15 03/21/24 11:15 BP 134/77 03/21/24 11:15 Pulse Ox 98 03/21/24 11:15 Oxygen Delivery Method Room Air 03/21/24 11:15 BMI result Body Mass Index 42.0 General: Appears afebrile. Alert and oriented. Mood and affect appropriate. Follows and participates in conversation appropriately. Respiratory effort is unlabored. Able to transition from sit to stand unassisted. Ambulates with bilaterally normal heel strike and toe off. Results Reviewed Results Reviewed: No imaging is available for review. Assessment & Plan Assessment & Plan (1) Lumbar radicular pain: Code(s): M54.16 - Radiculopathy, lumbar region Category: Medical (2) Cervical radicular pain: Code(s): M54.12 - Radiculopathy, cervical region Category: Medical (3) Left shoulder pain: Code(s): M25.512 - Pain in left shoulder Category: Medical (4) Vertigo: Code(s): R42 - Dizziness and giddiness Category: Medical Plan A referral was provided to physical therapy. The patient will receive a call to schedule an appointment. For his vertigo symptoms, I recommended vestibular rehab at physical therapy to see if that might help with BPPV symptoms. I again ordered an MRI scan of the lumbar spine for the patient today. The patient will call and schedule an appointment one week after the completion of the MRI scan. Scribed for Dr. Nichols by Darrel Hinson medical esthetician, on 03/21/2024. I, Dr. Nichols, have personally reviewed and agree with the information entered by the scribe. Orders: Orders PT Evaluation and Treatment 03/21/24 M54.16 - Radiculopathy, lumbar region, M54.12 - Radiculopathy, cervical region, M25.512 - Pain in left shoulder, R42 - Dizziness and giddiness PT Evaluation and Treatment 03/20/24 M25.512 - Pain in left shoulder MR lumbar spine wo con 03/21/24 M54.16 - Radiculopathy, lumbar region Coding Level of Care Code Est Pt Level 4 (57681) Diagnoses Lumbar radicular pain M54.16 Cervical radicular pain M54.12 Left shoulder pain M25.512 Vertigo R42
== END 2024-03-21 12:08 | disposition home or self-care (01) ==
PROVIDERS: PCP Nurse Practitioner Family; Visit Provider Internal Medicine
DX: M54.16 Radiculopathy, lumbar region (principal); M54.12 Radiculopathy, cervical region; M25.512 Pain in left shoulder; R42 Dizziness and giddiness
CPT/HCPCS: 99214

== ENCOUNTER → 2024-04-16 18:24 | Outpatient (BNV) | payer OTHER, SELFPAY | PROVIDERS: PCP Nurse Practitioner Family; Visit Provider Radiology Diagnostic Radiology | DX: M54.16 Radiculopathy, lumbar region (principal) | CPT/HCPCS: 72148 ==

== ENCOUNTER 2024-04-16 18:31 | Outpatient (REF) | payer OTHER, SELFPAY ==
--- NOTE | ~2024-04-16 | MR_ITS ---
EXAMINATION: MR LUMBAR SPINE WITHOUT CONTRAST CLINICAL INFORMATION: Radiculopathy, lumbar region. COMPARISON: MRI dated October 29, 2015 TECHNIQUE: MRI of the lumbar spine was obtained using routine sequences without contrast. FINDINGS: Limited by patient's motion artifact. Last rib-bearing vertebra labeled T12. Subtle bone marrow STIR signal in the anterior superior endplate of L1. Modic type II endplate changes at L2 and L3 and to a lesser extent L4. Multilevel marginal osteophyte formation and disc desiccation, L1-L4. The alignment is normal. The conus medullaris ends at pedicle of L1 with normal signal. T12-L1: Broad-based disc bulging. Facet joint hypertrophy. No compression upon neural elements. L1-2: Small focal central disc protrusion resulting in mild ventral indentation to the thecal sac. No compression upon neural elements. No neuroforamina stenosis. L2-3: Broad-based disc bulging. Facet joint hypertrophy. No compression upon neural elements. L3-4: Broad-based disc bulging. Facet joint hypertrophy. No compression upon neural elements. L4-5: Broad-based disc bulging. Facet joint hypertrophy. Trace of facet effusion. Bilateral neuroforamina narrowing. L5-S1: Broad-based disc bulging. Facet joint hypertrophy. Bilateral neuroforamina narrowing. No prevertebral compartment hematoma, mass or fluid collection. MR/MR lumbar spine wo con IMPRESSION: Multilevel lumbar spondylosis more conspicuous at L3-4 and L4-5 without compression upon neural elements. Electronically signed by: Stepan Souza MD 04/17/2024 08:16 AM [facility] [place], [place]
== END 2024-04-16 18:32 | disposition home or self-care (01) ==
LOC: HO.MRI 18:31
PROVIDERS: PCP Nurse Practitioner Family; Visit Provider Internal Medicine
DX: M54.16 Radiculopathy, lumbar region (principal)
CPT/HCPCS: 72148

== ENCOUNTER 2024-04-18 11:46 | Outpatient (AMB) | payer OTHER, SELFPAY ==
[2024-04-18 11:50] VITALS: BP 133/84; PULSE 60; RESP 15; O2SAT 99; BMI 42.0
--- NOTE | 2024-04-18 11:50 | MHC.OFFVIS ---
Vital Signs 04/18/24 11:50 Height 5 ft Weight 215 lb BMI 42.0 BP 133/84 Blood Pressure Location Lt brachial Position Sitting Respiration 15 Pulse 60 Pulse Source Pulse Oximeter Pulse Oximetry (%) 99 Oxygen Delivery Method Room Air Intake Visit Reasons: Lumbar Spine MRI Review/Results (Report in Chart) Allergies trazodone Adverse Reaction (Unknown, Verified 04/18/24 11:51) Nauseas, fatigued Medication List - Last Reconciled 04/18/24 by Rachel Oscar LPN atorvastatin 80 mg (2 x 40 mg) PO BEDTIME 90 days meloxicam 15 mg PO DAILY PRN 30 days oxycodone-acetaminophen 5-325 mg (Percocet) 1 tab PO Q8H PRN 12 days HPI HPI Lumbar Spine MRI Review/Results (Report in Chart): Details: LSpine MRI reviewed no significant findings to explain LE numbness and weakness continues to have significant dizziness and LE numbness would like to continue further workup to assess for a cause On exam today: Appears afebrile. Alert and oriented. Mood and affect appropriate. Follows and participates in conversation appropriately. Respiratory effort is unlabored. Able to transition from sit to stand unassisted. Ambulates with bilaterally normal heel strike and toe off. Able to stand and walk on toes and heels. COUNT INCLUDES THE [facility] Medical History Smoker Anal pain Prepatellar bursitis, right knee Osteoarthritis of right knee Spondylosis of lumbar spine Dyslipidemia Severe depression Surgical History H/O hemorrhoidectomy Family History Father No problems noted. Mother No problems noted. Social History Housing: House Alcohol intake: former Patient Tobacco Use Status: Current everyday Tobacco user Cigarette Packs Per Day: 1 Cigarettes Per Day: 20 Years Smoked: 16 years old e-Cigarette/Vaping Use: Never Used Second Hand Smoke Exposure: Yes service: Yes ([employer] ) Current occupational status: unemployed Cognitive needs: No Hearing needs: No Vision needs: No Physical Exam Vital Signs: Last Vital Signs Pulse 60 04/18/24 11:50 Resp 15 04/18/24 11:50 BP 133/84 04/18/24 11:50 Pulse Ox 99 04/18/24 11:50 Oxygen Delivery Method Room Air 04/18/24 11:50 BMI result Body Mass Index 42.0 Assessment & Plan Assessment & Plan (1) Lower extremity numbness: Code(s): R20.0 - Anesthesia of skin Category: Medical Plan refer for NCS explained that in the abscense of MRI/NCS findings, it may be hard to explain the numbness from a peripheral source continue w/u per neurology for post-concussive syndrome patient expressed understanding Orders: Orders NE nerve conduction velocity 04/18/24 R20.0 - Anesthesia of skin Coding Level of Care Code Tele Est Pt Level 4 (79238) Diagnoses Lower extremity numbness R20.0
== END 2024-04-18 12:43 | disposition home or self-care (01) ==
PROVIDERS: PCP Nurse Practitioner Family; Visit Provider Internal Medicine
DX: R20.0 Anesthesia of skin (principal)
CPT/HCPCS: 99214

== ENCOUNTER → 2024-04-18 11:46 | Outpatient (BNVA) | payer OTHER, SELFPAY | PROVIDERS: PCP Nurse Practitioner Family; Visit Provider Internal Medicine | DX: R20.0 Anesthesia of skin (principal) | CPT/HCPCS: 99212 ==

== ENCOUNTER 2024-06-13 13:29 | Outpatient (REF) | payer OTHER, SELFPAY ==
--- NOTE | 2024-06-13 13:39 | EMG_ITS ---
Chief complaint: He says numbness started left side of neck going down to left arm. This is now spread to left thigh/knee, milder on the right side. Denies symptoms below the knees. MRI brain/cervical spine/lumbar spine noted. EMG done by Dr. Sutherland 11/27/2023 left upper extremity was normal. Reason for referral: Evaluate for peripheral neuropathy Referred by: Dr. Nichols Procedure done: Bilateral lower extremity NCS/EMG Precautions and/or limitations: None The limb temperature was monitored continuously and remained between 32-36 degrees C during the performance of the NCS. Nerve Conduction Studies Anti Sensory Summary Table ?Stim Site NR Onset (ms) Norm Onset (ms) Peak (ms) Norm Peak (ms) O-P Amp (?V) Norm O-P Amp Site1 Site2 Delta-0 (ms) Dist (cm) Alexandro (m/s) Norm Alexandro (m/s) Left Sural Anti Sensory (Lat Mall) Calf ? 2.6 3.3 <4.0 8.4 >5.0 Calf Lat Mall 2.6 14.0 54 Right Sural Anti Sensory (Lat Mall) Calf ? 2.6 3.3 <4.0 9.2 >5.0 Calf Lat Mall 2.6 14.0 54 Motor Summary Table ?Stim Site NR Onset (ms) Norm Onset (ms) O-P Amp (mV) Norm O-P Amp iAmp (mV) Amp (1st) (%) Site1 Site2 Delta-0 (ms) Dist (cm) Alexandro (m/s) Norm Alexandro (m/s) Left Peroneal Motor (Ext Dig Brev) Ankle ? 3.4 <4.0 4.7 >2.5 5.5 100.0 Ankle Ext Dig Brev 3.4 0.0 B Fib ? 9.9 4.2 5.1 89.4 B Fib Ankle 6.5 34.0 52 >40 Poplt ? 10.7 4.1 5.0 87.2 Poplt B Fib 0.8 4.5 56 >40 Left Tibial Motor (Abd Gamino Brev) Ankle ? 2.5 <5 5.8 >2.5 8.1 100.0 Ankle Abd Gamino Brev 2.5 0.0 Knee ? 11.4 7.6 10.1 131.0 Knee Ankle 8.9 41.0 46 >40 Right Tibial Motor (Abd Gamino Brev) Ankle ? 3.2 <5 10.0 >2.5 12.7 100.0 Ankle Abd Gamino Brev 3.2 0.0 Knee ? 12.4 5.2 6.2 52.0 Knee Ankle 9.2 42.0 46 >40 EMG ?Side Muscle Nerve Root Ins Act Fibs Psw Amp Dur Poly Recrt Int Pat Comment Right AbdHallucis MedPlantar S1-2 Nml Nml Nml Nml Nml 0 Nml Complete Right AntTibialis Dp Br Peron L4-5 Nml Nml Nml Nml Nml 0 Nml Complete Right PostTibialis Tibial L5, S1 Nml Nml Nml Nml Nml 0 Nml Complete Right MedGastroc Tibial S1-2 Nml Nml Nml Nml Nml 0 Nml Complete Right VastusMed Femoral L2-4 Nml Nml Nml Nml Nml 0 Nml Complete Left AbdHallucis MedPlantar S1-2 Nml Nml Nml Nml Nml 0 Nml Complete Left AntTibialis Dp Br Peron L4-5 Nml Nml Nml Nml Nml 0 Nml Complete Left PostTibialis Tibial L5, S1 Nml Nml Nml Nml Nml 0 Nml Complete Left MedGastroc Tibial S1-2 Nml Nml Nml Nml Nml 0 Nml Complete Left VastusMed Femoral L2-4 Nml Nml Nml Nml Nml 0 Nml Complete FINDINGS: All motor and sensory nerves tested showed normal latencies, amplitudes and conduction velocities. Concentric needle EMG was performed in selected muscles of the bilateral lower extremity. Study did not reveal signs of electric abnormalities as shown in the table above. IMPRESSION: 1. This is a normal study. 2. There is no electrodiagnostic evidence for peroneal neuropathy, tibial neuropathy, lumbosacral plexopathy, lumbar radiculopathy, or peripheral neuropathy. Thank you for your kind referral. Lizeth Rachel MD, GIL Board Certified, [place] Board of Physical Medicine and Rehabilitation (ABPMR) Board Certified, [place] Board of Electrodiagnostic Medicine (ABEM) CODIN [id number] x 2 MTDD
--- OUTSIDE RECORDS SUMMARY | 2024-06-13 15:06 | XMS_ITS | Clinical Summary ---
Author Organization [facility] ity Address [address] [place] [address] Care Team Providers Care Insurance Underwriter Sales Name Role Phone Unavailable Primary Care Provider Unavailabl e Social History Tobacco Use Types Packs/Day Years Used Date Smoking Tobacco: Never Assessed Sex and Gender Information Value Date Recorded Sex Assigned at Not on file Legal Sex Male 9:42 AM EST Gender Identity Not on file Sexual Orientation Not on file Plan of Treatment Health Maintenance Due Date Last Done Comments DTaP,Tdap,and Td Vaccines (1 - Tdap) 1989 Hepatitis B Vaccines (1 of 3 - 19+ 3-dose series) 1989 Pneumococcal Vaccine: 50+ Ye ars (1 of 1 - PCV) 2020 Zoster Vaccines (1 of 2) 2020 COVID-19 Vaccine (1 - 2023-2 5 season) 2023 Influenza Vaccine (#1) 2023 HIB Vaccines Aged Out No longer eligi ble based on patient's age to complete this topic HPV Vaccines Aged Out No longer eligi ble based on patient's age to complete this topic Hepatitis A Vaccines Aged Out No long er eligible based on patient's age to complete this topic IPV Vaccines Aged Out No longer eligi ble based on patient's age to complete this topic MMR Vaccines Aged Out No longer eligi ble based on patient's age to complete this topic Meningococcal ACWY Vaccine Aged Out N o longer eligible based on patient's age to complete this topic Meningococcal B Vacine Aged Out No lo nger eligible based on patient's age to complete this topic Pneumococcal Vaccine: Pediat rics (0 to 5 Years) and At-Risk Patients (6 to 64 Years) Aged Out No longer eligible b ased on patient's age to complete this topic RSV Immunization Patients Un bernadette 20 months Aged Out No longer eligible b ased on patient's age to complete this topic Varicella Vaccines Aged Out No longer eligible based on patient's age to complete this topic
== END 2024-06-13 13:30 | disposition home or self-care (01) ==
LOC: HO.NEURO 13:29
PROVIDERS: PCP Nurse Practitioner Family; Visit Provider Internal Medicine
DX: R20.0 Anesthesia of skin (principal)
CPT/HCPCS: 95886; 95909

== ENCOUNTER → 2024-06-13 13:39 | Outpatient (BNV) | payer OTHER, SELFPAY | PROVIDERS: PCP Nurse Practitioner Family; Visit Provider Physical Medicine & Rehabilitation | DX: R20.0 Anesthesia of skin (principal); R20.2 Paresthesia of skin | CPT/HCPCS: 95886; 95909 ==

== ENCOUNTER 2024-07-07 10:25 | Outpatient (AMB) | payer OTHER, SELFPAY ==
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
[2024-07-07 10:39] VITALS: BP 135/83; PULSE 63; RESP 16; O2SAT 96; BMI 43.0
--- OUTSIDE RECORDS SUMMARY | 2024-07-07 12:12 | XMS_ITS | Clinical Summary ---
Author Organization [facility] ity Address [address] [place] [address] Care Team Providers Care Activity Manager Name Role Phone Unavailable Primary Care Provider [...]
== END 2024-07-07 11:25 | disposition home or self-care (01) ==
PROVIDERS: PCP Nurse Practitioner Family; Visit Provider Internal Medicine
DX: M54.12 Radiculopathy, cervical region (principal); R20.0 Anesthesia of skin; M25.512 Pain in left shoulder; G89.29 Other chronic pain
CPT/HCPCS: 99213

== ENCOUNTER → 2024-07-07 10:25 | Outpatient (BNVA) | payer OTHER, SELFPAY | PROVIDERS: PCP Nurse Practitioner Family; Visit Provider Internal Medicine | DX: M54.12 Radiculopathy, cervical region (principal); M25.512 Pain in left shoulder; R20.0 Anesthesia of skin; G89.29 Other chronic pain | CPT/HCPCS: 99212 ==

== ENCOUNTER 2024-07-21 12:36 | Outpatient (AMB) | payer OTHER, SELFPAY ==
[2024-07-21 12:38] VITALS: BP 124/76; PULSE 59; RESP 18; TEMP 36.7; O2SAT 98; BMI 42.8
--- NOTE | 2024-07-21 12:38 | A.OFFPC_ITS ---
Vital Signs 07/21/24 12:38 Height 5 ft Weight 219 lb BMI 42.8 BP 124/76 Blood Pressure Location Lt brachial Position Sitting Respiration 18 Pulse 59 Pulse Source Pulse Oximeter Temp 98.0 F Temp Source Oral Pulse Oximetry (%) 98 Oxygen Delivery Method Room Air Intake Visit Reasons: 4m follow up Intake Note: Pt is here today for 4 months follow up visit. Pt states that he has been having L shoulder/neck pain and numbness on the L side of his head. Allergies trazodone Adverse Reaction (Unknown, Verified 07/21/24 12:47) Nauseas, fatigued Medication List - Last Reconciled 07/21/24 by Johny Webb, STIFF LEG DERRICK OPERATOR- atorvastatin 80 mg (2 x 40 mg) PO BEDTIME 90 days meloxicam 15 mg PO DAILY PRN 30 days Tobacco use date assessed: 07/21/24 Dental Screening Dental Screen Date: 07/21/24 Did you have a dental visit in the last 12 months?: Yes Did you have a dental problem in the last 6 months where you did not have access to dental care?: No Was dental information given to patient?: Patient has dentist HPI 4m follow up HPI Details Chief Complaint Follow-up for dyslipidemia management History of Present Illness The patient is a 53-year-old male presenting with a follow-up for dyslipidemia. He is currently on atorvastatin 80 mg therapy. The patient denies experiencing chest pain or shortness of breath. He is a smoker and has declined additional imaging for health screening at this time. Social History - Smoking: Patient is a smoker. Health Maintenance - Encouragement to obtain labs for dysli pidemia monitoring. - Discussion of the benefits of low-dose CT scans for smoking-related health screening, declined by the patient. Review of Systems - Cardiovascular: Denies chest pain, mary rtness of breath. - Ophthalmologic: Reports blurred vision . Physical Exam General: Cooperative, healthy appearing, comfortable, no acute distress and well developed Orientation: Patient oriented x3 Limitations: No limitations Head: Normal to inspection Ears: Hearing grossly normal bilaterally Nose: Normal external nose present Face and sinus: Normal facial exam Eyes: Appearance normal, both eyes and all related structures Neck: Normal visual inspection and Yes full ROM Respiratory: Diminished respiratory effort and able to speak in complete sentences. Clear to auscultation bilaterally Cardiovascular: Regular rate and rhythm. Diminished S1 and S2 GI: Normal to inspection. Soft to palpation and nontender Skin: No rashes or lesions noted Neuro: Patient oriented x3 Extremities: Normal to inspection Results Plan Continuation of atorvastatin 80 mg is advised for managing dyslipidemia, as it has proven beneficial in reducing cardiovascular risk. While he continues to smoke, encouragement towards cessation will be ongoing. Although the patient has declined low-dose CT scans at this time, future discussions should highlight their importance for detecting smoking-related lung issues. It is also critical for the patient to complete laboratory testing to monitor lipid levels and adjust therapy accordingly. Discussion Notes I discussed with the patient the continuation of atorvastatin at 80 mg for his dyslipidemia, acknowledging both its confirmed efficacy in preventing cardiovascular complications and the importance of monitoring for side effects. We conversed about the benefits of smoking cessation and the potential health improvements it could bring, alongside discussing the value of low-dose CT scans for lung health due to his smoking history. The patient was informed about the necessity of obtaining lab work to track his lipid levels, which will guide future management. Patient Instructions - Continue taking atorvastatin 80 mg as prescribed. - Obtain lab work for monitoring cholest eve levels. - Consider smoking cessation for improve d health. - Return for future discussions about he alth screenings and management. [facility] Medical History Smoker Anal pain Prepatellar bursitis, right knee Osteoarthritis of right knee Spondylosis of lumbar spine Dyslipidemia Severe depression Surgical History H/O hemorrhoidectomy Family History Father No problems noted. Mother No problems noted. Social History Housing: House Alcohol intake: former Patient Tobacco Use Status: Current everyday Tobacco user Cigarette Packs Per Day: 1 Cigarettes Per Day: 20 Years Smoked: 16 years old e-Cigarette/Vaping Use: Never Used Second Hand Smoke Exposure: Yes service: Yes ([email or web address] training ) Current occupational status: unemployed Cognitive needs: No Hearing needs: No Vision needs: No Questionnaire PHQ-9 Over the last 2 weeks, how often have you been bothered by any of the following problems? 85702 - PHQ-9 Billing: Patient declined-do not bill Source: Developed by Drs. Jean Paul Carpenter, Tiffanie Richards, Armando Beatty and colleagues, with an educational ariana from [employer]. Thrive Questionnaire Date Thrive assessed: 07/21/24 I am a: Patient What is your living situation today?: I have a steady place to live Within the past 12 months, did the food you bought not last and you didn't have the money to get more?: Never true Within the past 12 months, did you worry whether your food would run out before you got money to buy more?: Never true Do you have trouble paying for medicines?: No Do you have trouble getting transportation to medical appointments?: No Do you have trouble paying your heating and electricity bill?: No Do you have trouble taking care of your child, family member or friend?: No Do you have trouble with day-to-day activities such as bathing, preparing meals, shopping, managing finances, etc.?: No Are you currently unemployed and looking for a job?: No Are you interested in more education?: No Please select the resources that you would like help with: None THRIVE Score: 0 AUDIT C Alcohol Use Questionnaire (AUDIT-C) 1. How often do you have a drink containing alcohol?: Monthly or less 2. How many drinks containing alcohol do you have on a typical day when you are drinking?: 1 or 2 3. How often do you have six or more drinks on one occasion?: Never Total Score: 1 MELISSA-7 AMB Questionnaire MELISSA-7 Date MELISSA - 7 assessed: 07/21/24 Feeling nervous, anxious, or on edge: 0 = Not at all Not being able to stop or control worryin = Not at all Worrying too much about different things: 0 = Not at all Trouble relaxin = Not at all Being so restless that it is hard to sit still: 0 = Not at all Becoming easily annoyed or irritable: 0 = Not at all Feeling afraid as if something awful might happen: 0 = Not at all Total MELISSA-7 score (0-4 normal; 5-9 mild; 10-14 moderate; 15-21 severe): 0 Source: Developed by Tiffanie Walker, Armando Beatty and colleagues, with an educational ariana from [employer]. MELISSA-7 Assessment Billing MELISSA-7 Assessment Tool: MELISSA-7 Assessment 66474 Physical exam (Primary Care) Vital Signs: Last Vital Signs Temp 98.0 F 07/21/24 12:38 Pulse 59 07/21/24 12:38 Resp 18 07/21/24 12:38 BP 124/76 07/21/24 12:38 Pulse Ox 98 07/21/24 12:38 Oxygen Delivery Method Room Air 07/21/24 12:38 BMI result Body Mass Index 42.8 Tobacco/Smoking Status: Tobacco use Status Tobacco use date assessed 07/21/24 07/21/24 12:50 Patient Tobacco Use Status Current everyday Tobacco 07/21/24 12:39 e-Cigarette/Vaping Use Never Used 07/21/24 12:39 Thrive Assessment: Date of Thrive Assessment Date Thrive assessed 07/21/24 07/21/24 12:53 Coding Level of Care Code Est Pt Level 3 (63551) Diagnoses Dyslipidemia E78.5 Screening PSA (prostate specific antigen) Z12.5 Additional Codes MELISSA-7 Assessment Billing - MELISSA-7 Assessment Tool: MELISSA-7 Assessment 01397 ([id number]) Assessment & Plan Assessment & Plan (1) Dyslipidemia: Code(s): E78.5 - Hyperlipidemia, unspecified Category: Medical (2) Screening PSA (prostate specific antigen): Code(s): Z12.5 - Encounter for screening for malignant neoplasm of prostate Category: Medical Plan . Orders: Orders Comprehensive [place]. Panel Fast Today E78.5 - Hyperlipidemia, unspecified TSH reflex Free T4 Today E78.5 - Hyperlipidemia, unspecified Complete Blood Count Auto Diff Today E78.5 - Hyperlipidemia, unspecified UA CC w/rflx Micro + Cult Today E78.5 - Hyperlipidemia, unspecified Lipid Panel Today E78.5 - Hyperlipidemia, unspecified Prostate Specific Antigen Scr Today Z12.5 - Encounter for screening for malignant neoplasm of prostate Medications: Refilled atorvastatin 80 mg (2 x 40 mg) PO BEDTIME 90 days 180 tabs 0RF
--- OUTSIDE RECORDS SUMMARY | 2024-07-21 12:39 | XMS_ITS | Clinical Summary ---
Author Organization [facility] ity Address [address] [place] [address] Care Team Providers Care Yeast Fermentation Attendant Name Role Phone Unavailable Primary Care Provider [...] - 2023-2 5 season) 2023 Influenza Vaccine (Season Ended) 2024 HIB Vaccines Aged Out No longer eligi [...] age to complete this topic Meningococcal B Vaccine Aged Out No l onger eligible based on patient's age to complete [...]
== END 2024-07-21 13:30 | disposition home or self-care (01) ==
LOC: HO.HMCC 12:37
PROVIDERS: PCP Nurse Practitioner Family; Visit Provider Nurse Practitioner Family
DX: E78.5 Hyperlipidemia, unspecified (principal); Z12.5 Encounter for screening for malignant neoplasm of prostate

== ENCOUNTER → 2024-07-21 12:36 | Outpatient (BNVA) | payer OTHER, SELFPAY | PROVIDERS: PCP Nurse Practitioner Family; Visit Provider Nurse Practitioner Family | DX: M25.512 Pain in left shoulder (principal); M54.2 Cervicalgia; E78.5 Hyperlipidemia, unspecified; F17.210 Nicotine dependence, cigarettes, uncomplicated; Z12.5 Encounter for screening for malignant neoplasm of prostate; Z79.899 Other long term (current) drug therapy | CPT/HCPCS: 96127; 99212 ==

== ENCOUNTER 2024-07-31 13:04 | Outpatient (REF) | payer OTHER, SELFPAY ==
--- OUTSIDE RECORDS SUMMARY | 2024-07-31 15:30 | XMS_ITS | Clinical Summary ---
Author Organization [facility] ity Address [address] [place] [address] Care Team Providers Care Inspector Final Assembly Mechanical Name Role Phone Unavailable Primary Care Provider [...]
[2024-07-31 16:06] LABS: MANUAL DIFF FLAG NO
[2024-07-31 16:19] LABS: Basophils Percent Auto 0.5 % (0-2); Eosinophils Absolute Auto 0.2 X10*3/uL (0.0-0.4); Eosinophils Percent Auto 3.1 % (0-4); Hematocrit 46.1 % (42.0-52.0); Hemoglobin 15.4 g/dl (14.0-18.0); Imm Gran Abs Auto 0.02 X10*3/uL (0.00-0.03); Imm Gran Pct Auto 0.3 % (0.0-0.4); Lymphocytes Absolute Auto 2.5 X10*3/uL (1.2-4.9); Mean Corpuscular HGB Conc 33.4 g/dl (31.0-36.0); Mean Corpuscular Hemoglobin 30.3 pg (27.0-33.0); Mean Corpuscular Volume 90.6 fL (80.0-98.0); Mean Platelet Volume 11.1 fL (9.4-12.4); Monocytes Absolute Auto 0.5 X10*3/uL (0.1-1.2); Monocytes Percent Auto 8.3 % (2-11); Neutrophils Absolute Auto 2.8 x10*3/uL (2.0-8.3); Neutrophils Percent Auto 46.8 % (45-73); Platelet Count 257 X10*3/uL (160-400); Red Blood Count 5.09 X10*6/uL (4.60-5.80); Red Cell Distribution Width 12.8 % (11.0-16.0); White Blood Count 6.1 X10*3/uL (4.8-10.8)
[2024-07-31 16:30] LABS: Appearance Urine Cloudy; Color Urine DK YELLOW; Glucose Urine UA Negative (Negative); Leukocyte Esterase Urine Negative (Negative); Nitrite Urine Negative (Negative); Specific Gravity - Urine >= 1.030 (1.005-1.025); UMIC TRIGGER UACC YES; Urine Blood Trace (Negative); Urine Ketones 15 mg/dL (Negative); Urine Protein Negative (Neg-Trace)
[2024-07-31 16:41] LABS: Alanine Aminotransferase 31 U/L (0-40); Albumin Level 4.4 g/dL (3.5-5.0); Alkaline Phosphatase 77 U/L (39-117); Anion Gap 13 (12-20); Aspartate Amino Transferase 36 U/L (5-37); Bilirubin Total 1.1 mg/dL (0.0-1.0); Blood Urea Nitrogen 18 mg/dL (9-16); Calcium 9.5 mg/dL (8.4-10.2); Carbon Dioxide 26 mmol/L (22-29); Chloride 104 mmol/L (96-108); Cholesterol 167 mg/dL (<200); Estimated Glomerular Filt Rate > 60; Glucose Fasting 68 mg/dL (60-99); HDL Cholesterol 43 mg/dL (>40); LDL Cholesterol Calculated 111 mg/dL (<100); Potassium 4.4 mmol/L (3.3-5.1); Sodium 139 mmol/L (135-145); Total Protein 7.5 g/dL (6.5-8.0); Triglycerides 67 mg/dL (<150)
[2024-07-31 16:46] LABS: Prostate Specific Antigen Scr 1.07 ng/mL (<0.05-4.0); TSH reflex Free T4 0.91 uIU/mL (0.32-4.0)
[2024-07-31 16:50] LABS: Squamous Epithelial Cell Urine 0-2 /HPF (0-2); WBC Urine 0-5 /HPF (0-5)
[2024-07-31 16:51] LABS: Bacteria Urine 2+ (None Seen); Hyaline Casts Urine 0-2 /LPF (0-2); Other Casts Urine Present
== END 2024-07-31 13:05 | disposition home or self-care (01) ==
LOC: HO.HMGCLDS 13:04
PROVIDERS: PCP Nurse Practitioner Family; Visit Provider Nurse Practitioner Family
DX: E78.5 Hyperlipidemia, unspecified (principal); Z12.5 Encounter for screening for malignant neoplasm of prostate
CPT/HCPCS: 36415; 80053; 80061; 81001; 84153; 84443; 85025

== ENCOUNTER 2024-08-11 15:45 | Outpatient (AMB) | payer OTHER, SELFPAY ==
--- OUTSIDE RECORDS SUMMARY | 2024-08-11 15:48 | XMS_ITS | Clinical Summary ---
Author Organization [facility] ity Address [address] [place] [address] Care Team Providers Care Napper Runner Name Role Phone Unavailable Primary Care Provider [...]
[2024-08-11 15:50] VITALS: BP 128/80; PULSE 65; O2SAT 99; BMI 43.0
--- NOTE | 2024-08-11 15:50 | MHC.PC.OV ---
Vital Signs 08/11/24 15:50 Height 5 ft Weight 220 lb BMI 43.0 BP 128/80 Blood Pressure Location Lt brachial Position Sitting Pulse 65 Pulse Source Pulse Oximeter Pulse Oximetry (%) 99 Oxygen Delivery Method Room Air Intake Visit Reasons: Annual PE Manager Of Organizational Development Required: No Accompanied by: Self / Same As Patient Allergies trazodone Adverse Reaction (Unknown, Verified 08/11/24 15:50) Nauseas, fatigued Medication List - Last Reconciled 08[facility]11[facility]24 [facility] at[facility] 80 mg PO BEDTIME 90 days meloxicam 15 mg PO DAILY PRN 30 days Tobacco use date assessed: 07/21/24 Dental Screening Dental Screen Date: 07/21/24 HPI Annual PE HPI Details History of Present Illness The patient is a 53-year-old male presenting for PE. He has a history of smoking, which could be of significance concerning his urological findings (micro hem). He has already sent multiple Cologuard screenings and has been referred to gastroenterology previously for further evaluation. A notable laboratory finding includes microhematuria, leading to a referral for urological assessment due to his history of smoking, with cytology and urine culture ordered. He is on atorvastatin 80 mg for hyperlipidemia, which has successfully reduced his cholesterol levels. Dizziness has been reported, occurring in conjunction with positional changes. Treatment with meclizine has been initiated to evaluate its effectiveness in alleviating dizziness. ? orthostatic changes as well, also Hx of post concussive syndrome. Refused liu carmona pike maneuver Health Maintenance - Participation in colorectal cancer screening with Cologuard tests. - previously referred to gastroenterology for further evaluation. - Referral to urology due to microhematuria and smoking history. - Hyperlipidemia management with atorvastatin 80 mg. Social History - History of smoking. Review of Systems - Urogenital: denies any hematuria, polyuria - Cardiovascular: Reports dizziness, particularly upon standing. denies any cp or sob - Respiratory: Denies participation in low-dose lung CT scan program previously. Willing to do so currently - General: Reports reluctance in previous medical programs. -denies any si or hi Physical Exam General: Cooperative, healthy appearing, comfortable, no acute distress and well developed Orientation: Patient oriented x3 Limitations: No limitations Head: Normal to inspection Ears: Hearing grossly normal bilaterally Nose: Normal external nose present Face and sinus: Normal facial exam Eyes: Appearance normal, both eyes and all related structures Neck: Normal visual inspection and Yes full ROM Respiratory: Normal respiratory effort and able to speak in complete sentences. Clear to auscultation bilaterally Cardiovascular: Regular rate and rhythm. Normal S1 and S2 GI: Normal to inspection. Soft to palpation and nontender Skin: No rashes or lesions noted Neuro: Patient oriented x3, reports some intermittent dizziness Extremities: Normal to inspection Results - Labs: Microhematuria noted in prior laboratory results. - Screening Tests: Multiple Cologuard tests submitted. Plan The patient will maintain engagement in colorectal cancer screening with continued gastroenterology evaluation. Due to the microhematuria and a history of smoking, a referral to a urologist is indicated. Current treatment with atorvastatin 80 mg is achieving positive results in lipid level management. Meclizine is prescribed to manage dizziness which is related to positional changes. Smoking cessation remains a pivotal aspect of his long-term health strategy. Discussion Notes During the consultation, I discussed the importance of colorectal cancer screening through Cologuard tests, and the necessity of further gastroenterology consultation was emphasized. Microhematuria requires a referral to a urologist, particularly given the patient?s history of smoking; we discussed how this could relate to potential urological conditions. The effective management of hyperlipidemia with atorvastatin was acknowledged, and current treatment is to continue. For his dizziness, the option of using meclizine was presented, and he agreed to the trial. We talked about the merits of discontinuing smoking, highlighting the potential benefits in reducing cardiovascular and oncological risks. Patient Instructions - Continue with Cologuard testing as recommended. - Follow up with gastroenterology for any findings from screening. - Attend the scheduled urologist appointment for microhematuria evaluation. - Keep taking atorvastatin 80 mg as prescribed. - Try taking meclizine for dizziness. - Consider smoking cessation options and interventions. [facility] Medical History Smoker Anal pain Prepatellar bursitis, right knee Osteoarthritis of right knee Spondylosis of lumbar spine Dyslipidemia Severe depression Surgical History H/O hemorrhoidectomy Family History Father No problems noted. Mother No problems noted. Social History Housing: House Alcohol intake: former Patient Tobacco Use Status: Current everyday Tobacco user Cigarette Packs Per Day: 1 Cigarettes Per Day: 20 Years Smoked: 16 years old e-Cigarette/Vaping Use: Never Used Second Hand Smoke Exposure: Yes service: Yes ([employer] training ) Current occupational status: unemployed Cognitive needs: No Hearing needs: No Vision needs: No Questionnaire Thrive Questionnaire Date Thrive assessed: 07/21/24 MELISSA-7 AMB Questionnaire MELSISA-7 Date MELISSA - 7 assessed: 07/21/24 Source: Developed by Drs. Jean Paul Carpenter, Tiffanie Richards, Armando Beatty and colleagues, with an educational ariana from [employer]. Physical exam (Primary Care) Vital Signs: Last Vital Signs Pulse 65 08/11/24 15:50 BP 128/80 08/11/24 15:50 Pulse Ox 99 08/11/24 15:50 Oxygen Delivery Method Room Air 08/11/24 15:50 BMI result Body Mass Index 43.0 Tobacco/Smoking Status: Tobacco use Status Tobacco use date assessed 07/21/24 08/11/24 15:51 Patient Tobacco Use Status Current everyday Tobacco 08/11/24 15:51 e-Cigarette/Vaping Use Never Used 08/11/24 15:51 Thrive Assessment: Date of Thrive Assessment Date Thrive assessed 07/21/24 08/11/24 15:51 Coding Level of Care Code Est Pt Prev Care 40-64y(32071) Diagnoses Smoker F17.200 Encounter for routine adult physical exam with abnormal findings Z00.01 Assessment & Plan Assessment & Plan (1) Smoker: Code(s): F17.200 - Nicotine dependence, unspecified, uncomplicated Category: Social Hx (2) Encounter for routine adult physical exam with abnormal findings: Code(s): Z00.01 - Encounter for general adult medical examination with abnormal findings Category: Medical Plan . Orders: Referrals Lung Cancer Screening Referral F17.200 - Nicotine dependence, unspecified, uncomplicated Medications: New meclizine 25 mg PO DAILY 30 days PRN 30 tabs 0RF motion sickness
== END 2024-08-11 16:57 | disposition home or self-care (01) ==
LOC: HO.HMCC 15:45
PROVIDERS: PCP Nurse Practitioner Family; Visit Provider Nurse Practitioner Family
DX: F17.200 Nicotine dependence, unspecified, uncomplicated (principal); Z00.01 Encounter for general adult medical examination with abnormal findings

== ENCOUNTER → 2024-08-11 15:45 | Outpatient (BNVA) | payer OTHER, SELFPAY | PROVIDERS: PCP Nurse Practitioner Family; Visit Provider Nurse Practitioner Family | DX: Z00.01 Encounter for general adult medical examination with abnormal findings (principal); F17.210 Nicotine dependence, cigarettes, uncomplicated | CPT/HCPCS: 99396 ==

== ENCOUNTER 2024-09-10 14:56 | Outpatient (REF) | payer OTHER, SELFPAY ==
--- NOTE | ~2024-09-10 | CT_ITS ---
EXAMINATION: CT ABDOMEN AND PELVIS WITHOUT AND WITH CONTRAST CLINICAL INFORMATION: Nicotine dependence COMPARISON: None available. TECHNIQUE: Noncontrast CT of the abdomen and pelvis is performed followed by split bolus contrast-enhanced images using 85 mL Omnipaque 350 contrast. Postcontrast imaging is performed during the combined nephrogram and excretion phase. Sagittal and coronal reformatted images were obtained on the technologist's workstation for both the precontrast and postcontrast phases. This CT examination was performed using dose optimization techniques as appropriate, variously including the following: *Automated exposure control *Adjustment of mA and/or kV according to patient size (this includes techniques or standardized protocols for targeted exams where dose is matched to indication/reason for exam; i.e. extremities or head) *Use of iterative reconstruction technique FINDINGS: LUNG BASES: The visualized lung bases are unremarkable. LIVER, GALLBLADDER, AND BILIARY TREE: Diffuse fatty changes are present throughout the liver. The gallbladder is unremarkable with no evidence of radiopaque gallstones, gallbladder wall thickening, or obvious pericholecystic inflammatory changes. PANCREAS: Unremarkable. SPLEEN: Unremarkable. ADRENAL GLANDS: Unremarkable. KIDNEYS AND URETERS: The kidneys are normal in size, shape, and attenuation. No hydronephrosis, hydroureter, or calculi seen. No perinephric stranding. There is symmetric concentration and excretion of contrast into the bladder. BLADDER: Bladder wall appears diffusely thickened, but it is only partially distended. GASTROINTESTINAL TRACT: The small and large bowel are unremarkable. The appendix is unremarkable. ABDOMINAL WALL: There is a small fat-containing umbilical hernia. LYMPH NODES: Normal. VASCULAR: Unremarkable. PELVIC VISCERA: Unremarkable. OSSEUS STRUCTURES: Thoracic vertebrae is noted anterior superior L4. CT/CT urogram IMPRESSION: Fatty liver The bladder wall appears mildly thickened which is probably due to incomplete distention. Correlate clinically to rule out cystitis. Electronically signed by: Tristin Casas MD 09/10/2024 05:55 PM EDT
[2024-09-10] MEDS: iohexoL 350 MG/ML 100 ML INFUS..BTL IV (15:31)
[2024-09-11 08:56] LABS: Creatinine POC 0.7 mg/dL (0.5-1.4); GFR POC > 60
== END 2024-09-10 14:57 | disposition home or self-care (01) ==
LOC: HO.CT 14:56
PROVIDERS: PCP Nurse Practitioner Family; Visit Provider Nurse Practitioner Family
DX: R31.29 Other microscopic hematuria (principal); F17.200 Nicotine dependence, unspecified, uncomplicated
CPT/HCPCS: 74178; 82565; Q9967

== ENCOUNTER → 2024-09-10 14:57 | Outpatient (BNV) | payer OTHER, SELFPAY | PROVIDERS: PCP Nurse Practitioner Family; Visit Provider Radiology Diagnostic Radiology | DX: K76.0 Fatty (change of) liver, not elsewhere classified (principal) | CPT/HCPCS: 74178 ==

== ENCOUNTER 2024-10-02 13:14 | Outpatient (REF) | payer OTHER, SELFPAY ==
--- OUTSIDE RECORDS SUMMARY | 2024-10-02 13:21 | XMS_ITS | Clinical Summary ---
Author Organization [facility] ity Address [address] [place] [address] Care Team Providers Care Manager Of Manufacturing Name Role Phone Unavailable Primary Care Provider [...]
[2024-10-02 16:21] LABS: Appearance Urine Clear; Glucose Urine UA Negative (Negative); PH 6.5 (5.0-9.0); Specific Gravity - Urine 1.020 (1.005-1.025)
== END 2024-10-02 13:15 | disposition home or self-care (01) ==
LOC: HO.HMGCLDS 13:14
PROVIDERS: PCP Nurse Practitioner Family; Visit Provider Nurse Practitioner Family
DX: F17.200 Nicotine dependence, unspecified, uncomplicated (principal); E78.5 Hyperlipidemia, unspecified; R31.29 Other microscopic hematuria
CPT/HCPCS: 81003; 87086; 88112

== ENCOUNTER 2024-10-07 14:23 | Outpatient (AMB) | payer OTHER, SELFPAY ==
[2024-10-07 14:26] VITALS: BP 132/80; PULSE 86; TEMP 37.1; O2SAT 97; BMI 41.4
--- NOTE | 2024-10-07 14:26 | MHC.PC.OV ---
Vital Signs 10/07/24 14:26 Height 5 ft Weight 212 lb BMI 41.4 BP 132/80 Blood Pressure Location Lt brachial Position Sitting Pulse 86 Pulse Source Pulse Oximeter Temp 98.7 F Temp Source Oral Pulse Oximetry (%) 97 Oxygen Delivery Method Room Air Intake Visit Reasons: paperwork Ccie Required: No Accompanied by: Self / Same As Patient Allergies trazodone Adverse Reaction (Unknown, Verified 10/07/24 15:28) Nauseas, fatigued Medication List - Last Reconciled 10/07/24 by ELA Osborn atorvastatin 80 mg PO BEDTIME 90 days Tobacco use date assessed: 07/21/24 Dental Screening Dental Screen Date: 07/21/24 HPI paperwork HPI Details Chief Complaint The patient presents with neuralgia and associated symptoms of dizziness and headaches. History of Present Illness The patient is a 53-year-old male presenting with post concussive syndrome. The symptoms primarily include dizziness and headaches, which have been persistent and troubling. The patient reports experiencing frustration and anger, which exacerbate his anxiety and depression. He is currently living in an apartment with excessively loud neighbors, which worsens his condition. He is seeking to move to a quieter apartment to alleviate his symptoms, and a letter for accommodation has been agreed upon to support this move. Social History - Housing: Currently living in an apartment with excessively loud neighbors, seeking relocation to a quieter area. Health Maintenance Review of Systems - Neurological: Reports dizziness and headaches. - Psychiatric: Reports anxiety and depression. -denies any si or hi Physical Exam General: Cooperative, healthy appearing, comfortable, no acute distress and well developed Orientation: Patient oriented x3 Limitations: No limitations Head: Normal to inspection Ears: Hearing grossly normal bilaterally Nose: Normal external nose present Face and sinus: Normal facial exam Eyes: Appearance normal, both eyes and all related structures Neck: Normal visual inspection and Yes full ROM Respiratory: Normal respiratory effort and able to speak in complete sentences. Clear/dim to auscultation bilaterally Cardiovascular: Regular rate and rhythm. Normal S1 and S2 GI: Normal to inspection. Soft to palpation and nontender Skin: No rashes or lesions noted Neuro: Patient oriented x3 Extremities: Normal to inspection Results Plan The plan includes supporting the patient's request to move to a quieter apartment to help alleviate his symptoms of post -concussive syndrome (dizziness, headaches, anger, frustrated, anxiety and depression) . A letter for accommodation will be provided to facilitate this move. Discussion Notes I discussed with the patient the impact of his current living situation on his symptoms and agreed to support his request for relocation to a quieter apartment. I will provide a letter for accommodation to assist with this process. Patient Instructions - Seek a quieter living environment to help reduce symptoms. - Follow up with the office if symptoms persist or worsen. [facility] Medical History Dyslipidemia Nicotine dependence, cigarettes, uncomplicated Anal pain Prepatellar bursitis, right knee Osteoarthritis of right knee Spondylosis of lumbar spine Severe depression Surgical History H/O hemorrhoidectomy Family History Father No problems noted. Mother No problems noted. Social History Housing: House Alcohol intake: former Patient Tobacco Use Status: Current everyday Tobacco user Cigarette Packs Per Day: 1 Cigarettes Per Day: 20 Years Smoked: 16 years old Packs Per Year: 0 Packs per year/per ci.00 e-Cigarette/Vaping Use: Never Used Second Hand Smoke Exposure: Yes service: Yes ([employer] training ) Current occupational status: unemployed Cognitive needs: No Hearing needs: No Vision needs: No Questionnaire Thrive Questionnaire Date Thrive assessed: 07/21/24 MELISSA-7 AMB Questionnaire MELISSA-7 Date MELISSA - 7 assessed: 07/21/24 Source: Developed by Drs. Jean Paul Carpenter, Tiffanie Richards, Armando Beatty and colleagues, with an educational ariana from [employer]. Physical exam (Primary Care) Vital Signs: Last Vital Signs Temp 98.7 F 10/07/24 14:26 Pulse 86 10/07/24 14:26 BP 132/80 10/07/24 14:26 Pulse Ox 97 10/07/24 14:26 Oxygen Delivery Method Room Air 10/07/24 14:26 BMI result Body Mass Index 41.4 Tobacco/Smoking Status: Tobacco use Status Tobacco use date assessed 07/21/24 10/07/24 14:34 Patient Tobacco Use Status Current everyday Tobacco 10/07/24 14:34 e-Cigarette/Vaping Use Never Used 10/07/24 14:34 Thrive Assessment: Date of Thrive Assessment Date Thrive assessed 07/21/24 10/07/24 14:34 Coding Level of Care Code Est Pt Level 3 (25250) Diagnoses Postconcussion syndrome F07.81 Anxiety and depression F41.9; F32.A Assessment & Plan Assessment & Plan (1) Postconcussion syndrome: Code(s): F07.81 - Postconcussional syndrome Category: Medical (2) Anxiety and depression: Code(s): F41.9 - Anxiety disorder, unspecified; F32.A - Depression, unspecified Category: Medical Plan .
--- OUTSIDE RECORDS SUMMARY | 2024-10-07 15:15 | XMS_ITS | Clinical Summary ---
Author Organization [facility] ity Address [address] [place] [address] Care Team Providers Care Capital Campaign Fundraiser Name Role Phone Unavailable Primary Care Provider [...] 2023-2 5 season) 2023 Influenza Vaccine (#1) 2024 HIB Vaccines Aged Out No longer [...] 5 Years) and At-Risk Patients (6 to 49 Years) Aged Out No longer eligible b ased on patient's age to complete this topic RSV Immunization Patients Un bernadette 20 months Aged Out No longer eligible b ased on patient's age to complete this topic Varicella Vaccines Aged Out No longer eligible based on patient's age to complete this topic
== END 2024-10-07 15:42 | disposition home or self-care (01) ==
LOC: HO.HMCC 14:23
PROVIDERS: PCP Nurse Practitioner Family; Visit Provider Nurse Practitioner Family
DX: F41.9 Anxiety disorder, unspecified (principal); F07.81 Postconcussional syndrome; F32.A Depression, unspecified

== ENCOUNTER → 2024-10-07 14:23 | Outpatient (BNVA) | payer OTHER, SELFPAY | PROVIDERS: PCP Nurse Practitioner Family; Visit Provider Nurse Practitioner Family | DX: M17.11 Unilateral primary osteoarthritis, right knee (principal); F07.81 Postconcussional syndrome; F41.9 Anxiety disorder, unspecified; F32.A Depression, unspecified | CPT/HCPCS: 99212 ==

== ENCOUNTER 2024-10-17 14:17 | Outpatient (AMB) | payer OTHER, SELFPAY ==
--- OUTSIDE RECORDS SUMMARY | 2024-10-17 14:19 | XMS_ITS | Clinical Summary ---
Author Organization [facility] ity Address [address] [place] [address] Care Team Providers Care Mainspring Former [place] Name Role Phone Unavailable Primary Care Provider [...]
--- NOTE | 2024-10-17 14:28 | A.OFFVIS_ITS ---
Intake Visit Reasons: microscopic hematuria Intake Note: Patient is present for MICROSCOPIC HEMATURIA Urology Medication:NONE Antibiotic Allergy:NONE Blood Thinner:NONE Medical Office Administrator Required: No Allergies trazodone Adverse Reaction (Unknown, Verified 10/17/24 14:29) Nauseas, fatigued [facility] Medical History Dyslipidemia Nicotine dependence, cigarettes, uncomplicated Anal pain Prepatellar bursitis, right knee Osteoarthritis of right knee Spondylosis of lumbar spine Severe depression Surgical History H/O hemorrhoidectomy Family History Father No problems noted. Mother No problems noted. Social History Housing: House Alcohol intake: former Patient Tobacco Use Status: Current everyday Tobacco user Cigarette Packs Per Day: 1 Cigarettes Per Day: 20 Years Smoked: 16 years old e-Cigarette/Vaping Use: Never Used Second Hand Smoke Exposure: Yes service: Yes ([employer] training ) Current occupational status: unemployed Cognitive needs: No Hearing needs: No Vision needs: No Assessment & Plan Assessment & Plan (1) Bladder outlet obstruction: Code(s): N32.0 - Bladder-neck obstruction Category: Medical Plan Trial Flomax Medications: New tamsulosin (Flomax) 0.4 mg PO BEDTIME 90 tabs 1RF 90 days N32.0 - Bladder-neck obstruction Patient Instructions: This note is constructed using voice recognition software. While every effort has been made to ensure accuracy steel shot header operator errors may have been included. Imaging studies, laboratory and physical exam results were discussed and reviewed in detail. No major barriers to patient understanding were identified. An opportunity to ask questions regarding the treatment plan was provided. All questions were answered. The patient expressed understanding and agreement with the above treatment plan. The patient is aware they should contact our office by phone for worsening of their current condition or the appearance of new urologic symptoms. Compliance is encouraged with any medications and followup testing that is ordered. It is a privilege to participate in the urologic care of your patient. If you have any questions or concerns regarding treatment for the above conditions, or other urologic issues, please do not hesitate to contact me. The office telephone contact is [phone]. Sincerely, Dr Lars Simmons MD, [facility] - Urology Compassionate Specialist Care for the Genitourinary System Coding Diagnoses Bladder outlet obstruction N32.0
== END 2024-10-17 15:08 | disposition home or self-care (01) ==
LOC: HO.HUSH 14:18
PROVIDERS: PCP Nurse Practitioner Family; Visit Provider Urology
DX: Z13.9 Encounter for screening, unspecified (principal)

== ENCOUNTER → 2024-10-17 14:17 | Outpatient (BNVA) | payer OTHER, SELFPAY | PROVIDERS: PCP Nurse Practitioner Family; Visit Provider Urology | DX: R31.29 Other microscopic hematuria (principal); N32.0 Bladder-neck obstruction | CPT/HCPCS: 81003 ==

== ENCOUNTER 2024-12-19 10:30 | Outpatient (AMB) | payer OTHER, SELFPAY ==
--- NOTE | 2024-12-19 08:00 | A.OFFVIS_ITS ---
Intake Visit Reasons: Nicotine dependence, cigarettes, Allergies trazodone Adverse Reaction (Unknown, Verified 10/17/24 14:29) Nauseas, fatigued HPI HPI Nicotine dependence, cigarettes,: Details: Initial visit for this 54yo smoker with a 35PYH. Patient started smoking at age 18 for 36 years at 1ppd. . Occasional marijuana use. Denies second hand smoke exposure. Denies exposure to chemicals or substances like asbestos. . Denies known family history of lung cancer. Denies personal history of cancers. Denies chest CT in last year. . Denies recent travel outside the [place]. Denies recent respiratory illness or recent hospitalization for respiratory issues. Denies testing positive for COVID. Denies receiving COVID Vaccine. . Denies fever, chills, new/worsening cough, hemoptysis, hoarseness or dysphagia. Denies significant chest pain, significant dyspnea or unintentional weight loss. Patient Lung Cancer Screening Questionnaire reviewed with patient by provider. . Shared Decision Making Completed. Patient meets criteria. Discussed in detail with patient, the risk vs benefit of LDCT screening. Patient consents to proceed with scan. Discussed smoking cessation. [facility] Medical History (Updated 12/19/24 @ 10:35 by Kimberly Phillip PA-C) Dyslipidemia Nicotine dependence, cigarettes, uncomplicated Anal pain Prepatellar bursitis, right knee Osteoarthritis of right knee Spondylosis of lumbar spine Severe depression Surgical History H/O hemorrhoidectomy Family History Father No problems noted. Mother No problems noted. Social History (Updated 12/19/24 @ 10:35 by Kimberly Phillip PA-C) Housing: House Alcohol intake: former Patient Tobacco Use Status: Current everyday Tobacco user Cigarette Packs Per Day: 1 Cigarettes Per Day: 20 Years Smoked: (onset 18yo, 1ppd x 36yrs, 35pyh) e-Cigarette/Vaping Use: Never Used Second Hand Smoke Exposure: Yes service: Yes ([employer] ) Current occupational status: unemployed Cognitive needs: No Hearing needs: No Vision needs: No Assessment & Plan Assessment & Plan (1) Nicotine dependence, cigarettes, uncomplicated: Comment: (onset 18yo, 1ppd x 36yrs, 35pyh) Code(s): F17.210 - Nicotine dependence, cigarettes, uncomplicated Category: Medical Plan: - SDM visit completed today in office. - Patient meets criteria for LDCT for lung cancer screening purposes and is asymptomatic. - Smoking cessation counseling offered. Patients can always call [phone]. - Will arrange for a LDCT scan of the chest for screening purposes at [facility]. - Risks, benefits, and alternatives were discussed in detail and the patient agrees to proceed. - Risks discussed include but are not limited to: radiation exposure, anxiety during testing and while awaiting results, false negatives, false positives and possibility of additional intervention such as further imaging or surgical procedures for benign disease. - Benefits are obviously detection of lung cancer at an early stage which can lead to improved outcomes. - Discussed the importance of screening program compliance with adherence to yearly LDCT scan as scheduled - or sooner interval scans for personalized s creening regimen. - Discussed follow up plan. Our office will send a letter discussing results and if needed set up phone call and office visit based on CT findings. - Patient educated on results categorization and the management decisions for suspicious findings potentially found on the screening LDCT scan. Any patient with a Lung RADS score of 3 or 4 will be reviewed by a multidisciplinary team at [facility] to form a plan of action in regards to scan findings. - If further work up is warranted for a suspicious lung finding this will be followed by the Lung Cancer Screening program in conjunction with the Thoracic Surgery Department at [facility]. - A copy of the office note and LDCT will be sent to the patient's PCP - as well as documentation on any associated further plans of care. - Incidental findings on LDCT are the PCP's responsibility. These findings are indicated with an S finding on the LDCT Assessment. A note discussing the findings will be sent to the PCP who is then responsible for further management. - All questions answered.? Coding Level of Care Code Lung Cancer Screening G0296 Diagnoses Nicotine dependence, cigarettes, uncomplicated F17.210
--- OUTSIDE RECORDS SUMMARY | 2024-12-19 11:05 | XMS_ITS | Clinical Summary ---
Author Organization [facility] ity Address [address] [place] [address] Care Team Providers Care Care Coordinator Name Role Phone Unavailable Primary Care Provider [...] 2020 Zoster Vaccines (1 of 2) 2020 Depression Screening 04/02/2024 COVID-19 Vaccine (1 - 2023-2 5 season) 2024 Influenza Vaccine (#1) 2024 HIB Vaccines Aged [...]
== END 2024-12-19 11:00 | disposition home or self-care (01) ==
LOC: HO.HPS 10:30
PROVIDERS: PCP Nurse Practitioner Family; Referring Provider Nurse Practitioner Family; Visit Provider Physician Assistant Medical
DX: F17.210 Nicotine dependence, cigarettes, uncomplicated (principal)
CPT/HCPCS: G0296

== ENCOUNTER 2024-12-19 10:42 | Outpatient (REF) | payer OTHER, SELFPAY ==
--- NOTE | ~2024-12-19 | CT_ITS ---
EXAMINATION: CT LUNG SCREENING HISTORY: F17.210 - Nicotine dependence, cigarettes, uncomplicated TECHNIQUE: Low dose axial images were obtained from the sternal notch to upper abdomen without IV contrast per standard departmental protocol. Sagittal and coronal reformatted images were also obtained and reviewed. One or more of the following techniques was used for dose reduction: Automated exposure control, adjustment of the mA and/or kV according to patient size, use of iterative reconstruction technique. DLP: 54 mGy-cm COMPARISON: There are no prior studies available for comparison. FINDINGS: Lung nodules: There are 2-3 mm nodules in the right upper lobe (series 4, images 26 and 28), and in the left upper lobe (series 4, image 26). No additional pulmonary nodules are identified. Emphysema: none Coronary Calcification: none Aortic Arch Calcification: none Potentially Significant Incidentals : none Additional Chest Findings: There is no pleural or pericardial effusion. No mediastinal or axillary lymphadenopathy is identified. Visualized upper abdomen: The visualized portions of the liver, spleen, and adrenals have an unremarkable unenhanced appearance. CT/CT lung screening IMPRESSION: No suspicious pulmonary nodules are identified. LUNG-RADS ASSESSMENT: Lung-RADS 2: Benign MANAGEMENT: Continue annual screening with LDCT in 12 months Category S: N/A Electronically signed by: Jean Paul Nath MD 12/19/2024 11:18 AM EDT
== END 2024-12-19 10:43 | disposition home or self-care (01) ==
LOC: HO.CT 10:42
PROVIDERS: PCP Nurse Practitioner Family; Visit Provider Physician Assistant Medical
DX: Z12.2 Encounter for screening for malignant neoplasm of respiratory organs (principal); F17.210 Nicotine dependence, cigarettes, uncomplicated
CPT/HCPCS: 71271; G0296

== ENCOUNTER → 2024-12-19 10:44 | Outpatient (BNV) | payer OTHER, SELFPAY | PROVIDERS: PCP Nurse Practitioner Family; Visit Provider Radiology Diagnostic Radiology | DX: F17.210 Nicotine dependence, cigarettes, uncomplicated (principal) | CPT/HCPCS: 71271 ==

== ENCOUNTER 2024-12-30 14:29 | Outpatient (AMB) | payer OTHER, SELFPAY ==
[2024-12-30 14:51] VITALS: BP 138/88; PULSE 61; RESP 16; TEMP 36.9; O2SAT 98; BMI 40.8
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
--- OUTSIDE RECORDS SUMMARY | 2024-12-30 15:56 | XMS_ITS | Clinical Summary ---
Author Organization [facility] Address [address] [place] [address] Care Team Providers Care Leather Roller Name Role Phone Unavailable Primary Care Provider [...] 5 season) 2024 Influenza Vaccine (#1) 2024 RSV Immunization Adult Patie nts (1 - 1-dose 75+ series) 2045 HIB Vaccines Aged Out No longer eligi [...]
== END 2024-12-30 16:07 | disposition home or self-care (01) ==
PROVIDERS: PCP Nurse Practitioner Family; Visit Provider Nurse Practitioner Family
DX: F43.9 Reaction to severe stress, unspecified (principal); F07.81 Postconcussional syndrome

== ENCOUNTER → 2024-12-30 14:29 | Outpatient (BNVA) | payer OTHER, SELFPAY | PROVIDERS: PCP Nurse Practitioner Family; Visit Provider Nurse Practitioner Family | DX: M17.11 Unilateral primary osteoarthritis, right knee (principal); F07.81 Postconcussional syndrome; F43.9 Reaction to severe stress, unspecified | CPT/HCPCS: 99212 ==

== ENCOUNTER 2025-01-16 13:48 | Outpatient (AMB) | payer OTHER, SELFPAY ==
--- NOTE | 2025-01-16 14:21 | A.OFFVIS_ITS ---
Intake Visit Reasons: 3m/PVR Intake Note: Patient is present for 3mo follow up Urology Medication:tamsulosion Blood Thinner:NONE today's PVR: 66mls Gaming Surveillance Observer Required: No Accompanied by: Self / Same As Patient Allergies trazodone Adverse Reaction (Unknown, Verified 01/16/25 14:21) Nauseas, fatigued HPI Comments Details: James is a pleasant male. He is a patient of Dr. Munoz. He is seen for the following urologic conditions - lower urinary tract symptoms Follow-up trial tamsulosin Some improvement Does notice Lower urinary tract symptoms Progressive Weakness of stream Incomplete bladder emptying Waking at night x2 Imaging CT scan diffuse bladder thickening Bothered by current symptoms Recommend trial alpha-concha PFSH Medical History Dyslipidemia Nicotine dependence, cigarettes, uncomplicated Anal pain Prepatellar bursitis, right knee Osteoarthritis of right knee Spondylosis of lumbar spine Severe depression Surgical History H/O hemorrhoidectomy Family History Father No problems noted. Mother No problems noted. Social History Housing: House Alcohol intake: former Patient Tobacco Use Status: Current everyday Tobacco user Cigarette Packs Per Day: 1 Cigarettes Per Day: 20 Years Smoked: (onset 18yo, 1ppd x 36yrs, 35pyh) e-Cigarette/Vaping Use: Never Used Second Hand Smoke Exposure: Yes service: Yes ([employer] training ) Current occupational status: unemployed Cognitive needs: No Hearing needs: No Vision needs: No Results AMB Urinalysis, Automated UA Leukoctes 0 Eric/uL Last Edit by MAKENZIE Arias on 01/16/25 15:46 UA Nitrite Negative Last Edit by MAKENZIE Airas on 01/16/25 15:46 UA Urobilinogen 0.2 mg/dL Last Edit by MAKENZIE Arias on 01/16/25 15:4 6 UA Protein 15 mg/dL Last Edit by MAKENZIE Arias on 01/16/25 15:46 UA pH 6.0 Last Edit by MAKENZIE Arias on 01/16/25 15:46 UA Blood 10 [place]/uL Last Edit by MAKENZIE Arias on 01/16/25 15:46 UA Specific [place] 1.020 Last Edit by MAKENZIE Arias on 01/16/25 15: 46 UA Ketone Last Edit by MAKENZIE Arias on 01/16/25 15:46 UA Bilirubin 0 mg/dL Last Edit by MAKENZIE Arias on 01/16/25 15:46 UA Glucose 0 mg/dL Last Edit by Nichole Rizzo CCM on 01/16/25 15:46 Assessment & Plan Assessment & Plan Orders: Orders AMB Urinalysis Automated Today Z13.9 - Encounter for screening, unspecified Coding
--- OUTSIDE RECORDS SUMMARY | 2025-01-16 16:15 | XMS_ITS | Clinical Summary ---
[facility] [address] [place] [address] Care Team Providers Care Accounting Coordinator Name Role Phone Unavailable Primary Care [...]
== END 2025-01-16 15:34 | disposition home or self-care (01) ==
LOC: HO.HUSH 13:49
PROVIDERS: PCP Nurse Practitioner Family; Visit Provider Urology
DX: Z13.9 Encounter for screening, unspecified (principal)

== ENCOUNTER → 2025-01-16 13:48 | Outpatient (BNVA) | payer OTHER, SELFPAY | PROVIDERS: PCP Nurse Practitioner Family; Visit Provider Urology | DX: N39.0 Urinary tract infection, site not specified (principal) | CPT/HCPCS: 81003 ==

== ENCOUNTER 2025-02-17 14:23 | Outpatient (AMB) | payer OTHER, SELFPAY ==
--- NOTE | 2025-02-17 14:27 | AM.OFFWIN_ITS ---
Intake Vital Signs 02/17/25 14:28 Height 5 ft Weight 219 lb BMI 42.8 BP 134/84 Blood Pressure Location Rt brachial Position Sitting Pulse 67 Pulse Source Pulse Oximeter Temp 97.7 F Temp Source Oral Pulse Oximetry (%) 97 Oxygen Delivery Method Room Air Intake Visit Reasons: EP pain coming from gums Intake Note: Patient presents c/o right sided jaw pain x3 days. Patient Tobacco Use Status: Current everyday Tobacco user Allergies trazodone Adverse Reaction (Unknown, Verified 02/17/25 14:31) Nauseas, fatigued HPI HPI Comments History of Present Illness Details History of Present Illness - The patient is a 54-year-old male pres enting with facial pain and swelling. - Symptoms began two days ago, with pain extending from the jaw to the ear. - Reports dry mouth and unable to spit s ometimes. - He denies dental pain. - Smokes cigarettes, which may affect or al health. - Experiences heartburn, denies chest pa in or dyspnea. - Has been using Motrin and DayQuil for relief. - He has no sore throat, ear pain, cough , CP, SOB, abd pain, or n/v/d. Physical Exam General: Cooperative, healthy appearing, comfortable, no acute distress and well developed Head: Normal to inspection Face and sinus: Swelling noted on the right upper cheek. Mouth/Throat: +halitosis noted. Tongue is normal and midline. Uvula is midline. Oropharynx is pink with no exudates noted. Tonsils not swollen. Dental caries noted on the left lower molar. Gingiva is pink. No discharge noted. Neck: Normal visual inspection and full ROM. +lymphadenopathy noted. Respiratory: Normal respiratory effort and able to speak in complete sentences. Clear to auscultation bilaterally Cardiovascular: Regular rate and rhythm. Normal S1 and S2 Skin: No rashes or lesions noted [facility] Medical History Dyslipidemia Nicotine dependence, cigarettes, uncomplicated Anal pain Prepatellar bursitis, right knee Osteoarthritis of right knee Spondylosis of lumbar spine Severe depression Surgical History H/O hemorrhoidectomy Family History Father No problems noted. Mother No problems noted. Social History Housing: House Alcohol intake: former Patient Tobacco Use Status: Current everyday Tobacco user Cigarette Packs Per Day: 1 Cigarettes Per Day: 20 Years Smoked: (onset 18yo, 1ppd x 36yrs, 35pyh) e-Cigarette/Vaping Use: Never Used Second Hand Smoke Exposure: Yes service: Yes ([employer] training ) Current occupational status: unemployed Cognitive needs: No Hearing needs: No Vision needs: No Review of Systems Const All systems reviewed & are unremarkable except as noted in HPI and below Physical Exam Vital Signs: Last Vital Signs Temp 97.7 F 02/17/25 14:28 Pulse 67 02/17/25 14:28 BP 134/84 02/17/25 14:28 Pulse Ox 97 02/17/25 14:28 Oxygen Delivery Method Room Air 02/17/25 14:28 BMI result Body Mass Index 42.8 Assessment & Plan Assessment & Plan (1) Facial swelling: Code(s): R22.0 - Localized swelling, mass and lump, head Plan Most likely dental abscess vs stone? plan - tylenol or motrin as needed - diet as tolerated - augmentin BID for 7 days - needs to f/u with a dentist - follow up with PCP Medications: New amoxicillin-pot clavulanate 875-125 mg 1 tab PO Q12H 14 tabs 0RF Coding Level of Care Code Est Pt Level 3 (43136) Diagnoses Facial swelling R22.0
[2025-02-17 14:28] VITALS: BP 134/84; PULSE 67; TEMP 36.5; O2SAT 97; BMI 42.8
--- OUTSIDE RECORDS SUMMARY | 2025-02-18 11:22 | XMS_ITS | Clinical Summary ---
[facility] [address] [place] [address] Care Team Providers Care Fire Operations Forester Name Role Phone Unavailable Primary Care Provider [...] Depression Screening 04/02/2024 COVID-19 Vaccine (1 - 2024-2 6 season) 2024 Influenza Vaccine (#1) 2024 RSV [...]
== END 2025-02-17 15:27 | disposition home or self-care (01) ==
PROVIDERS: PCP Nurse Practitioner Family; Visit Provider Physician Assistant Medical
DX: R22.0 Localized swelling, mass and lump, head (principal)

== ENCOUNTER → 2025-02-17 14:23 | Outpatient (BNVA) | payer OTHER, SELFPAY | PROVIDERS: PCP Nurse Practitioner Family; Visit Provider Physician Assistant Medical | DX: R22.0 Localized swelling, mass and lump, head (principal); R51.9 Headache, unspecified; F17.210 Nicotine dependence, cigarettes, uncomplicated | CPT/HCPCS: 99212 ==